=== PATIENT | female | born 1990 | race Caucasian/White ===

== ENCOUNTER 2020-10-28 09:33 | Inpatient (IN) ==
[2020-10-28] MEDS ORDERED: PENICILLIN G POTASSIUM 6 MU in DEXTROSE 5% 250 ML IV STA (10:26)
[2020-10-28] MEDS ORDERED: OXYTOCIN 30 UNITS/500 ML BAG IV PRN ×3 (10:26→17:41)
[2020-10-28] MEDS ORDERED: PENICILLIN G POTASSIUM 3 MU in DEXTROSE 5% 100 ML IV PRN (10:26)
--- NOTE | 2020-10-28 10:31 | History & Physical Report ---
Date of Service October 28, 2020 Assessment & Plan (1) Uterine contractions: (2) Active labor at term: Plan: 30-year-old G1, P0 at 39 weeks of gestation presenting in active labor with regular contractions, Vital signs stable afebrile, heart rate reassuring, GBS positive, Plan to admit, monitor, labs, penicillin for GBS and anticipate . (3) GBS (group B Streptococcus carrier), +RV culture, currently : History of Present Illness Primary Care Provider: Leida Mcclain MD Patient is a 30-year-old G1, P0 at 39 weeks of gestation who has been feeling contractions since 3:30 AM this morning. They got more closer and regular after 8 AM. She saw bloody mucousy discharge x2. No leakage of fluid. Reports good movements. Her has been uncomplicated except GBS positive. She is being admitted for labor. Allergies Allergy/AdvReac Type Severity Reaction Status Date / Time No Known Drug Allergies Allergy none Verified 10/28/20 09:50 Home Medications Medication Instructions Recorded Confirmed Type azelastine 137 mcg (0.1 %) nasal 2 sprays INTRANASAL DAILY #30 ml 11/02/18 10/28/20 Rx spray aerosol cetirizine 10 mg tablet (Zyrtec) 10 mg PO DAILY 10/21/20 10/28/20 History prenat.vits,alireza,[id number] 1 tab PO DAILY 10/21/20 10/28/20 History Patient History Surgical History H/O foot surgery Family History Family/Other COPD (chronic obstructive pulmonary disease) Tuberculosis Cancer Congenital heart failure Social History Smoking Status: Never smoker Hx Alcohol Use: No Hx Substance Use: No Preferred Language: Luxembourgish Communication Ability: Effective Visual Impairment: No Limitations Hearing Ability: Normal Shank Stitcher Required: No Beliefs That Will Affect Care: None marital status: Current Living Situation: Spouse current occupational status: employed current occupation: [employer] Other Information That Helps Us Care for You: No Feels Safe at Home: Yes Safety Concerns: Feels Safe At This Time Childhood Exposure to Second-Hand Smoke: No Dental Care, Regularly: Yes Seatbelt Use: always Sunscreen Use: Yes Do you think of yourself as: straight/heterosexual Sexual Activity: has never been active Gender Identity: Female Assistive Devices: None BLOCKER HEATED METAL FORMS History No history of STDs including chlamydia gonorrhea or herpes Review of Systems All systems reviewed & are unremarkable except as noted in HPI & below Physical Exam Constitutional: WD/WN, vitals as above well developed, well nourished and + acute distress (With contractions only) Genitourinary: normal external appearance OB Exam Abdomen: + vertex Manual OB Exam: + cervical dilation 5 cm, + cervical effacement 80% and + station -1 OB Exam Monitor Tracing: + external uterine monitor used and + category I Results & Data ([facility]) Vital Signs (Past 12 Hours) Vital Signs Temp Pulse Resp BP 10/28/20 09:46 86 123/75 10/28/20 09:44 36.9 C 20
[2020-10-28] MEDS ORDERED: fentaNYL citrate 100 MCG/2 ML VIAL ONE (10:44)
[2020-10-28] MEDS ORDERED: SODIUM CHLORIDE 0.9% INJ 10 ML VIAL ONE (10:44)
[2020-10-28] MEDS ORDERED: BUPIVACAINE 0.25% 30 ML VIAL ONE (10:44)
[2020-10-28] MEDS ORDERED: ePHEDrine sulfate 50 MG/ML AMP ONE (10:44)
[2020-10-28] MEDS ORDERED: fentaNYL 2MCG/ML ROPIVACAINE 1.25MG/ML 100 ML BAG EPI ONE (10:44)
[2020-10-28] MEDS: LACTATED RINGER'S 1,000 ML IV PRN ×2 (10:49→11:49)
[2020-10-28 10:52] LABS: Hematocrit (blood only) 36.4 % (37-47); Hemoglobin 12.2 g/dL (12.0-16.0); Mean Corpuscular Hemoglobin 28.8 pg (25-34); Mean Corpuscular Hgb Conc 33.5 g/dL (32-36); Mean Corpuscular Volume 86.1 fL (80-100); Mean Platelet Volume 12.4 fL (7.4-10.4); Platelet Count 222 K/uL (130-400); RDW Coefficient of Variation 13.8 % (11.5-14.5); RDW Standard Deviation 42.8 fL (36.4-46.3); Red Blood Count 4.23 M/uL (4.2-5.4); White Blood Count 14.79 K/uL (4.8-10.8)
--- NOTE | 2020-10-28 11:15 | Anesthesiology Consultation ---
Date of Service October 28, 2020 Assessment & Plan ASA ASA2 Proposed Anesthesia Anesthesia Type: General and Labor Epidural Risk / Benefits Reviewed With: PT / POA / Parent / Guardian, Accepts Plan and Informed Consent Obtained History Height/Weight Height: 5 ft 5 in Weight: 87.997 kg Allergies Allergy/AdvReac Type Severity Reaction Status Date / Time No Known Drug Allergies Allergy none Verified 10/28/20 09:50 Medications Home Medications Medication Instructions Recorded Confirmed Last Taken azelastine 137 mcg (0.1 %) nasal 2 sprays INTRANASAL DAILY #30 ml 11/02/18 10/28/20 10/28/20 07:30 spray aerosol cetirizine 10 mg tablet (Zyrtec) 10 mg PO DAILY 10/21/20 10/28/20 10/27/20 09:30 prenat.vits,alireza,iqm-snaq-azztb 1 tab PO DAILY 10/21/20 10/28/20 10/27/20 09:30 Active Medications Generic Name Dose Route Start Last Admin Trade Name Freq PRN Reason Stop Dose Admin Lactated Ringer's 1,000 mls @ 150 mls/hr 10/28/20 10:26 10/28/20 11:43 Lr IV 10/30/20 10:25 150 mls/hr .[id number] PRN Infusion L&D Protocol Protocol Ropivacaine 100 ml 10/28/20 11:18 10/28/20 11:40 Fentanyl 2mcg/Ml Ropivacaine 1.25mg/Ml 100 Ml Bag EPI 10/29/20 11:17 12 ml PRN PRN Administration Pain R/T Labor Protocol Exercise / Class Metabolic Activity II 4-5 Yardwork/Stairs/Walk up hill Past Family History Family History Family/Other COPD (chronic obstructive pulmonary disease) Tuberculosis Cancer Congenital heart failure Past Surgical History Surgical History H/O foot surgery Past Anesthesia History No Hx of Anesthesia Complications and No Family Hx of Anesthesia Complications History of PONV No Hx of PONV and No Hx of Motion Sickness Social History Smoking Status: Never smoker Hx Alcohol Use: No Hx Substance Use: No Review of Systems denies fever/cough/ colds/ chest pain/ SOB/ RENE denies RENE Physical Exam Vital Signs Last Vital Signs Temp 37.1 C 10/28/20 11:10 Pulse 82 10/28/20 11:44 Resp 18 10/28/20 11:40 BP 133/71 10/28/20 11:44 Pulse Ox 100 10/28/20 11:39 ENMT Mouth: no TMJ abnormality and no dentition abnormality Thyromental Distance: > or= 3.5 Finger Breadths Mallampati Class: II Neck neck extension not limited Respiratory normal respiratory effort; no respiratory distress Auscultation: lungs clear to auscultation bilaterally Cardiovascular Rate/Rhythm: regular rate and regular rhythm Neurologic moves all extremities Psychiatric Orientation: alert and oriented x 3 Testing Laboratory Results 10/28/20 10:35
[2020-10-28] MEDS ORDERED: diphenhydrAMINE 50 MG/ML VIAL IV PRN (11:18)
[2020-10-28] MEDS ORDERED: NALOXONE HCL 0.4 MG/1 ML VIAL/CARP IV PRN (11:18)
[2020-10-28] MEDS ORDERED: NALOXONE HCL 1 MG in SODIUM CHLORIDE 0.9% 1000ML 1,000 ML IV PRN (11:18)
[2020-10-28] MEDS ORDERED: ePHEDrine sulfate 50 MG/ML AMP IV PRN (11:18)
[2020-10-28] MEDS ORDERED: NALBUPHINE HCL INJ 10 MG/ML AMP IV PRN (11:18)
[2020-10-28] MEDS ORDERED: fentaNYL 2MCG/ML ROPIVACAINE 1.25MG/ML 100 ML BAG EPI PRN (11:18)
--- NOTE | 2020-10-28 16:14 | Obstetrical Progress Note ---
Date of Service October 28, 2020 Assessment & Plan Admission and Anticipated Discharge Date Admission Date: October 28, 2020 Subjective Late entry from 15:40 Patient is comfortable, received epidural for pain VSS Afebrile FHR reassuring 2nd dose of PCN is running VE; 10/ 100%/+3 Will finish PCN and start pushing Continue to monitor closely Results & Data ([facility]) Vital Signs (Past 12 Hours) Vital Signs Temp Pulse Resp BP Pulse Ox 10/28/20 16:09 69 100 10/28/20 16:05 79 92 10/28/20 16:04 72 140/74 100 10/28/20 16:00 20 10/28/20 15:59 72 100 10/28/20 15:54 83 88 L 10/28/20 15:53 83 92 10/28/20 15:50 36.7 C 68 20 134/69 10/28/20 15:49 67 100 10/28/20 15:45 82 90 10/28/20 15:44 81 100 10/28/20 15:39 73 100 10/28/20 15:35 69 130/71 10/28/20 15:34 75 100 10/28/20 15:30 20 10/28/20 15:29 61 100 10/28/20 15:24 58 L 100 10/28/20 15:19 62 119/64 99 10/28/20 15:14 63 100 10/28/20 15:09 69 100 10/28/20 15:06 64 126/65 10/28/20 15:04 67 100 10/28/20 15:00 36.7 C 20 10/28/20 14:59 67 100 10/28/20 14:54 58 L 100 10/28/20 14:51 57 L 112/61 10/28/20 14:49 56 L 100 10/28/20 14:44 56 L 100 10/28/20 14:39 62 100 10/28/20 14:35 60 114/66 10/28/20 14:34 61 100 10/28/20 14:30 20 10/28/20 14:29 61 100 10/28/20 14:24 61 100 10/28/20 14:19 62 114/67 100 10/28/20 14:14 61 100 10/28/20 14:09 71 100 10/28/20 14:04 66 129/75 100 10/28/20 14:00 20 10/28/20 13:59 62 100 10/28/20 13:54 68 100 10/28/20 13:50 70 125/72 10/28/20 13:49 85 100 10/28/20 13:44 65 100 10/28/20 13:39 65 100 10/28/20 13:34 70 117/72 100 10/28/20 13:30 20 10/28/20 13:29 74 100 10/28/20 13:24 68 100 10/28/20 13:20 76 116/72 10/28/20 13:19 68 100 10/28/20 13:14 60 100 10/28/20 13:09 71 100 10/28/20 13:05 66 119/71 10/28/20 13:04 64 100 10/28/20 13:00 20 10/28/20 12:59 74 100 10/28/20 12:54 79 100 10/28/20 12:49 69 114/73 100 10/28/20 12:44 67 100 10/28/20 12:40 36.6 C 20 10/28/20 12:39 88 98 10/28/20 12:35 65 110/72 10/28/20 12:34 63 100 10/28/20 12:30 20 10/28/20 12:29 60 100 10/28/20 12:24 64 100 10/28/20 12:19 68 119/56 L 99 10/28/20 12:14 67 100 10/28/20 12:09 70 100 10/28/20 12:04 69 128/67 100 10/28/20 12:00 20 10/28/20 11:59 79 134/74 100 10/28/20 11:54 80 133/70 100 10/28/20 11:52 75 127/67 10/28/20 11:50 73 18 124/65 10/28/20 11:49 78 100 10/28/20 11:48 75 125/65 10/28/20 11:46 70 122/67 10/28/20 11:45 20 10/28/20 11:44 75 133/71 100 10/28/20 11:42 69 131/63 10/28/20 11:40 71 18 130/63 10/28/20 11:39 67 100 10/28/20 11:37 83 146/60 H 10/28/20 11:34 78 91 10/28/20 11:29 78 100 10/28/20 11:24 71 10/28/20 11:19 64 100 10/28/20 11:14 67 10/28/20 11:10 37.1 C 71 20 142/83 H 10/28/20 11:09 75 100 10/28/20 09:46 86 123/75 10/28/20 09:44 36.9 C 20
[2020-10-28] MEDS ORDERED: MINERAL OIL 30 ML UDC ONE (17:06)
[2020-10-28] MEDS ORDERED: miSOPROStoL 200 MCG TAB ONE (17:32)
[2020-10-28] MEDS ORDERED: DIPHTHERIA/TETANUS/PERTUSSIS 0.5 ML SYR/VIAL IM ONE (17:41)
[2020-10-28] MEDS ORDERED: HYDROCORTISONE ACETATE 25 MG SUPP PR PRN (17:41)
[2020-10-28] MEDS ORDERED: BENZOCAINE 20% AER SPR 82.5 GM CAN EXT PRN (17:41)
[2020-10-28] MEDS ORDERED: ACETAMINOPHEN 325 MG TAB PO PRN (17:41)
[2020-10-28] MEDS ORDERED: SUPERCREAM 0.870% 15 GM JAR EXT PRN (17:41)
[2020-10-28] MEDS ORDERED: miSOPROStoL 200 MCG TAB PR ONE (17:41)
[2020-10-28] MEDS ORDERED: oxyCODONE/ACETAMINOPHEN 5mg/325mg TAB PO PRN (17:41)
[2020-10-28] MEDS ORDERED: bisacodyL 10 MG SUPP PR PRN (17:41)
[2020-10-28] MEDS ORDERED: MEASLES, MUMPS & RUBELLA VIRUS VIAL SQ ONE (17:41)
--- NOTE | 2020-10-28 17:58 | Delivery Summary ---
DATE OF DELIVERY: 10/28/2020 TIME OF DELIVERY: 1714 p.m. DETAILS OF DELIVERY: The patient was found to be fully dilated and desired to push. She pushed for about 50 minutes and delivered the head without difficulty. Shoulders were delivered with minimal traction. Baby was handed to the mother where mouth and nose were suctioned. Baby was vigorously moving and crying. Cord was clamped x2 and cut at 1 minute delay. Cord blood was obtained. Vagina and perineum were checked for lacerations. There was a small vaginal laceration at the 5 o'clock position. It was a second-degree. It was repaired with 0 Vicryl in a running locked fashion and then there was another smaller one in the posterior wall of vagina, which was also repaired with 0 Vicryl and 2-0 Vicryl in a running fashion. Excellent hemostasis was achieved. There was a superficial first-degree laceration medial to the right upper labia. It was also repaired with 3-0 Vicryl with [id number] stitches x1 and it was hemostatic. The placenta was found to be in the vagina, delivered spontaneous as intact and complete. Uterus was explored and found to be empty. Lower segment was cleared of all clots and debris. The fundus was firm. EBL was 250 mL. Mom and baby tolerated the procedure well. Sponge, lap, needle count was correct x 2. Baby was a viable male , Apgars 8/9. No complications happened and I was present during whole procedure. Job ID: [id number] [facility]
--- NOTE | 2020-10-28 18:24 | Anesthesia Procedure Note ---
Date of Service October 28, 2020 Anesthesia Post Epidural Note Vital Signs Vital Signs: Temp Pulse Resp BP Pulse Ox 36.7 C 80 20 124/67 99 10/28/20 15:50 10/28/20 18:17 10/28/20 18:03 10/28/20 18:17 10/28/20 17:44 Pain Intensity Abdomen: Pain Intensity: 0 Notes Mental Status: alert / awake / arousable and participated in evaluation Patient Amnestic to Procedure: Yes Nausea / Vomiting: adequately controlled Pain: adequately controlled Airway Patency, RR, SpO2: stable & adequate BP & HR: stable & adequate Hydration State: stable & adequate Anesthetic Complications: no major complications apparent and Pt Satisfied with anesthetic care
[2020-10-28] MEDS: DOCUSATE SODIUM 100 MG CAP PO SCH (22:34)
[2020-10-29] MEDS: IBUPROFEN 600 MG TAB PO PRN ×4 (01:53→20:55)
[2020-10-29 06:58] LABS: Hematocrit (blood only) 29.4 % (37-47); Hemoglobin 9.8 g/dL (12.0-16.0); Mean Corpuscular Hemoglobin 28.7 pg (25-34); Mean Corpuscular Hgb Conc 33.3 g/dL (32-36); Platelet Count 177 K/uL (130-400); RDW Coefficient of Variation 13.8 % (11.5-14.5); RDW Standard Deviation 42.8 fL (36.4-46.3); Red Blood Count 3.42 M/uL (4.2-5.4); White Blood Count 15.14 K/uL (4.8-10.8)
[2020-10-29] MEDS: PRENATAL VITAMIN 1 TAB PO SCH (08:41)
[2020-10-29] MEDS: DOCUSATE SODIUM 100 MG CAP PO SCH ×2 (08:41→20:55)
[2020-10-29] MEDS: FERROUS SULFATE 325 MG TAB PO SCH (08:41)
--- NOTE | 2020-10-29 10:24 | Obstetrical Progress Note ---
Date of Service October 29, 2020 Subjective Ambulation: ambulating normally Voiding: no voiding problems Passing Gas:: Yes Diet Tolerance:: regular diet Feeding Type:: breast feeding Current Pain Level(1-10): 0 doing well Physical Exam no pain on palpation abdomen soft fundus firm no edema neg Shayan's tent d/c in AM Results & Data ([facility]) Vital Signs (Past 12 Hours) Vital Signs Temp Pulse Resp BP Pulse Ox 10/29/20 07:48 36.9 C 69 18 116/76 98 10/29/20 04:17 36.8 C 63 16 112/71 96 10/28/20 23:11 36.8 C 67 16 116/72 99 Laboratory Results 10/28/20 10/28/20 10/28/20 10:28 10:28 10:35 WBC 14.79 H RBC 4.23 Hgb 12.2 Hct 36.4 L MCV 86.1 MCH 28.8 MCHC 33.5 RDW Std Deviation 42.8 RDW Coeff of Taryn 13.8 Plt Count 222 MPV 12.4 H COVID-19 Eval Order Covid19 [facility]Now [facility] SARS-CoV-2, RNA, NAAT NEGATIVE 10/29/20 06:46 WBC 15.14 H RBC 3.42 L Hgb 9.8 L Hct 29.4 L MCV 86.0 MCH 28.7 MCHC 33.3 RDW Std Deviation 42.8 RDW Coeff of Taryn 13.8 Plt Count 177 MPV 12.0 H COVID-19 Eval Order SARS-CoV-2, RNA, NAAT
[2020-10-29] MEDS ORDERED: bisacodyL 5 MG TABEC PO SCH (20:00)
[2020-10-30] MEDS: IBUPROFEN 600 MG TAB PO PRN (06:22)
[2020-10-30 06:44] LABS: Hematocrit (blood only) 28.3 % (37-47); Hemoglobin 9.3 g/dL (12.0-16.0)
--- NOTE | 2020-10-30 07:38 | Obstetrical Progress Note ---
Date of Service October 30, 2020 Assessment & Plan Admission and Anticipated Discharge Date Admission Date: October 28, 2020 Subjective Patient is seen and examined. She feels well, no complaints. Ambulating without dizziness Voiding without difficulty Tolerating regular diet with out N&V Bleeding is minimal No fever/ chills/ CP/ SOB/ N&V/ Leg pain Breast and bottle feeding without problems Vital Signs Temp Pulse Resp BP Pulse Ox 10/29/20 23:30 37 C 68 16 112/75 99 10/29/20 20:35 36.9 C 77 16 110/71 99 10/29/20 15:11 36.9 C 72 18 119/74 99 10/29/20 12:00 36.8 C 71 18 113/73 97 10/29/20 07:48 36.9 C 69 18 116/76 98 Lab Results 10/28/20 10/28/20 10/28/20 Range/Units 10:28 10:28 10:35 WBC 14.79 H (4.8-10.8) K/uL RBC 4.23 (4.2-5.4) M/uL Hgb 12.2 (12.0-16.0) g/dL Hct 36.4 L (37-47) % MCV 86.1 (80-100) fL MCH 28.8 (25-34) pg MCHC 33.5 (32-36) g/dL RDW Std Deviation 42.8 (36.4-46.3) fL RDW Coeff of Taryn 13.8 (11.5-14.5) % Plt Count 222 (130-400) K/uL MPV 12.4 H (7.4-10.4) fL Immature Gran % (Auto) Neut % (Auto) Lymph % (Auto) Pope % (Auto) Eos % (Auto) Baso % (Auto) Neut # (Auto) Lymph # (Auto) Pope # (Auto) Eos # (Auto) Baso # (Auto) Immature Gran # (Auto) Absolute Nucleated RBC Nucleated RBC % (auto) Neutrophils % (Manual) Band Neutrophils % Lymphocytes % (Manual) Prolymphocyte % Reactive Lymphs % (Man) Monocytes % (Manual) Eosinophils % (Manual) Basophils % (Manual) Metamyelocytes % (Man) Myelocytes % (Man) Promyelocytes % (Man) Blast Cells % (Manual) Plasma Cell % (Manual) Other Cells % Nucleated RBC % Neutrophils # (Manual) Band Neutrophils # Total Absolute Neuts Lymphocytes # (Manual) Prolymphocyte # Reactive Lymphs # Total Abs Lymphocytes Monocytes # (Manual) Eosinophils # (Manual) Basophils # (Manual) Metamyelocytes # (Man) Myelocytes # (Manual) Promyelocytes # (Man) Blast Cells # (Man) Plasma Cell # (Manual) Other Cells # Nucleated RBCs # (Man) Hypersegmented Neuts Hyposegmented Neuts Hypogranular Neuts Large Granular Lymphs # Lrg Granular Lymphs Hairy Cells Smudge Cells Toxic Granulation Toxic Vacuolation Dohle Bodies [place]apphire Rods Platelet Estimate Hypogranular Platelets Clumped Platelets Giant Platelets Platelet Satelliting RBC Morphology Polychromasia Hypochromasia Poikilocytosis Basophilic Stippling Anisocytosis Microcytosis Macrocytosis Spherocytes Pappenheimer Bodies Sickle Cells Target Cells Tear Drop Cells Ovalocytes Stomatocytes [place] Bodies Echinocytes Acanthocytes (Spur) Rouleaux RBC Agglutinates Schistocytes RBC Morph Comment Sezary Cell COVID-19 Eval Order Covid19 IDNow [facility] SARS-CoV-2, RNA, NAAT NEGATIVE (NEGATIVE) 10/29/20 10/30/20 10/30/20 Range/Units 06:46 06:20 06:20 WBC 15.14 H Cancelled (4.8-10.8) K/uL RBC 3.42 L Cancelled (4.2-5.4) M/uL Hgb 9.8 L 9.3 L Cancelled (12.0-16.0) g/dL Hct 29.4 L 28.3 L Cancelled (37-47) % MCV 86.0 Cancelled (80-100) fL MCH 28.7 Cancelled (25-34) pg MCHC 33.3 Cancelled (32-36) g/dL RDW Std Deviation 42.8 Cancelled (36.4-46.3) fL RDW Coeff of Taryn 13.8 Cancelled (11.5-14.5) % Plt Count 177 Cancelled (130-400) K/uL MPV 12.0 H Cancelled (7.4-10.4) fL Immature Gran % (Auto) Cancelled Neut % (Auto) Cancelled Lymph % (Auto) Cancelled Pope % (Auto) Cancelled Eos % (Auto) Cancelled Baso % (Auto) Cancelled Neut # (Auto) Cancelled Lymph # (Auto) Cancelled Pope # (Auto) Cancelled Eos # (Auto) Cancelled Baso # (Auto) Cancelled Immature Gran # (Auto) Cancelled Absolute Nucleated RBC Cancelled Nucleated RBC % (auto) Cancelled Neutrophils % (Manual) Cancelled Band Neutrophils % Cancelled Lymphocytes % (Manual) Cancelled Prolymphocyte % Cancelled Reactive Lymphs % (Man) Cancelled Monocytes % (Manual) Cancelled Eosinophils % (Manual) Cancelled Basophils % (Manual) Cancelled Metamyelocytes % (Man) Cancelled Myelocytes % (Man) Cancelled Promyelocytes % (Man) Cancelled Blast Cells % (Manual) Cancelled Plasma Cell % (Manual) Cancelled Other Cells % Cancelled Nucleated RBC % Cancelled Neutrophils # (Manual) Cancelled Band Neutrophils # Cancelled Total Absolute Neuts Cancelled Lymphocytes # (Manual) Cancelled Prolymphocyte # Cancelled Reactive Lymphs # Cancelled Total Abs Lymphocytes Cancelled Monocytes # (Manual) Cancelled Eosinophils # (Manual) Cancelled Basophils # (Manual) Cancelled Metamyelocytes # (Man) Cancelled Myelocytes # (Manual) Cancelled Promyelocytes # (Man) Cancelled Blast Cells # (Man) Cancelled Plasma Cell # (Manual) Cancelled Other Cells # Cancelled Nucleated RBCs # (Man) Cancelled Hypersegmented Neuts Cancelled Hyposegmented Neuts Cancelled Hypogranular Neuts Cancelled Large Granular Lymphs Cancelled # Lrg Granular Lymphs Cancelled Hairy Cells Cancelled Smudge Cells Cancelled Toxic Granulation Cancelled Toxic Vacuolation Cancelled Dohle Bodies Cancelled [place] Rods Cancelled Platelet Estimate Cancelled Hypogranular Platelets Cancelled Clumped Platelets Cancelled Giant Platelets Cancelled Platelet Satelliting Cancelled RBC Morphology Cancelled Polychromasia Cancelled Hypochromasia Cancelled Poikilocytosis Cancelled Basophilic Stippling Cancelled Anisocytosis Cancelled Microcytosis Cancelled Macrocytosis Cancelled Spherocytes Cancelled Pappenheimer Bodies Cancelled Sickle Cells Cancelled Target Cells Cancelled Tear Drop Cells Cancelled Ovalocytes Cancelled Stomatocytes Cancelled [place] Bodies Cancelled Echinocytes Cancelled Acanthocytes (Spur) Cancelled Rouleaux Cancelled RBC Agglutinates Cancelled Schistocytes Cancelled RBC Morph Comment Cancelled Sezary Cell Cancelled COVID-19 Eval Order SARS-CoV-2, RNA, NAAT (NEGATIVE) PE: General: Alert, orientedx3, NAD Abd: soft, NT, fundus firm, below Umbilicus Perineum intact, Lochia rubra minimal Ext; NT, no edema AP: 30 yo s/p , ppd# 2 VSS Afebrile doing well Continue routine care All questions were answered Discussed when to call D/C home , f/u in office Results & Data ([facility]) Vital Signs (Past 12 Hours) Vital Signs Temp Pulse Resp BP Pulse Ox 10/29/20 23:30 37 C 68 16 112/75 99 10/29/20 20:35 36.9 C 77 16 110/71 99
[2020-10-30 07:39] LABS: Basophils # (auto) 0.03 K/uL (0-0.2); Basophils % (auto) 0.3 %; Eosinophils % (auto) 1.7 %; Immature Granulocytes # (auto) 0.14 K/uL (0.00-0.02); Immature Granulocytes % (auto) 1.2 %; Lymphocytes # (auto) 1.52 K/uL (1.2-3.4); Lymphocytes % (auto) 13.2 %; Mean Corpuscular Hemoglobin 28.7 pg (25-34); Mean Platelet Volume 12.3 fL (7.4-10.4); Monocytes # (auto) 0.62 K/uL (0.11-0.59); Monocytes % (auto) 5.4 %; Neutrophils # (auto) 8.97 K/uL (1.4-6.5); Neutrophils % (auto) 78.2 %; Platelet Count 194 K/uL (130-400); RDW Coefficient of Variation 13.9 % (11.5-14.5); RDW Standard Deviation 44.3 fL (36.4-46.3); Red Blood Count 3.28 M/uL (4.2-5.4); White Blood Count 11.48 K/uL (4.8-10.8)
[2020-10-30 07:40] LABS: Mean Corpuscular Hgb Conc 32.9 g/dL (32-36); Mean Corpuscular Volume 86.5 fL (80-100)
[2020-10-30] MEDS: FERROUS SULFATE 325 MG TAB PO SCH (07:42)
[2020-10-30] MEDS: DOCUSATE SODIUM 100 MG CAP PO SCH (07:42)
[2020-10-30] MEDS: PRENATAL VITAMIN 1 TAB PO SCH (07:42)
== END 2020-10-30 12:00 | disposition home or self-care (01) | DRG 807 ==
LOC: OPB 09:33 → 4S1 09:34 → 4S2 20:04

== ENCOUNTER 2024-04-17 17:55 | Inpatient (IN) ==
[2024-04-17] MEDS ORDERED: CALCIUM CARBONATE 500 MG CHEWABLE TAB PO PRN (19:08)
[2024-04-17] MEDS ORDERED: ACETAMINOPHEN 325 MG TAB PO PRN ×2 (19:08→21:21)
[2024-04-17] MEDS ORDERED: LIDOCAINE 1% LOCAL 20 ML VIAL INFIL PRN (19:08)
[2024-04-17] MEDS: SODIUM CHLORIDE 0.9% 1,000 ML IV SCH (19:10)
[2024-04-17 19:45] LABS: Basophils # (auto) 0.06 K/uL (0.00-0.20); Basophils % (auto) 0.5 %; Eosinophils # (auto) 0.19 K/uL (0.00-0.50); Eosinophils % (auto) 1.5 %; Hematocrit (blood only) 33.9 % (37.0-47.0); Hemoglobin 11.3 g/dl (12.0-16.0); Immature Granulocytes # (auto) 0.32 K/uL (0.01-0.20); Immature Granulocytes % (auto) 2.6 %; Lymphocytes % (auto) 12.2 %; Mean Corpuscular Hemoglobin 27.8 pg (25.0-34.0); Mean Corpuscular Hgb Conc 33.3 g/dL (32.0-36.0); Mean Corpuscular Volume 83.5 fL (80.0-100.0); Mean Platelet Volume 11.9 fL (9.4-12.4); Monocytes # (auto) 0.79 K/uL (0.11-0.59); Monocytes % (auto) 6.4 %; Neutrophils % (auto) 76.8 %; Platelet Count 231 K/uL (130-400); RDW Coefficient of Variation 14.5 % (11.5-14.5); RDW Standard Deviation 43.7 fL (36.4-46.3); Red Blood Count 4.06 M/uL (4.20-5.40); White Blood Count 12.26 K/ul (4.8-10.8)
[2024-04-17] MEDS ORDERED: SODIUM CHLORIDE 0.9% PF INJ 10 ML VIAL EPI PRN (19:47)
[2024-04-17] MEDS ORDERED: NALOXONE HCL 1 MG in SODIUM CHLORIDE 0.9% 1,000 ML IV PRN (19:47)
[2024-04-17] MEDS ORDERED: ePHEDrine sulfate 50 MG/ML AMP IV PRN (19:47)
[2024-04-17] MEDS ORDERED: BUPIVACAINE 0.25% PF 30 ML VIAL EPI PRN (19:47)
[2024-04-17] MEDS ORDERED: ROPIVACAINE 0.5% PF 5 MG/ML 20 ML VIAL EPI PRN (19:47)
[2024-04-17] MEDS ORDERED: diphenhydrAMINE 50 MG/ML VIAL IV PRN (19:47)
[2024-04-17] MEDS ORDERED: fentaNYL citrate PF 100 MCG/2 ML VIAL EPI PRN (19:47)
[2024-04-17] MEDS ORDERED: fentANYL 2 MCG/ML BUPIVacaine 0.125%-NSS 100ML BAG EPI PRN (19:47)
[2024-04-17] MEDS ORDERED: LIDOCAINE 2% MPF LOCAL 5 ML VIAL EPI PRN (19:47)
[2024-04-17] MEDS ORDERED: NALOXONE HCL 0.4 MG/1 ML VIAL/CARP IV PRN (19:47)
[2024-04-17] MEDS ORDERED: NALBUPHINE HCL INJ 10 MG/ML AMP IV PRN (19:47)
--- NOTE | 2024-04-17 19:52 | Anesthesiology Consultation ---
Date of Service April 17, 2024 Assessment & Plan Chart Review Chart Review: Patient NOT seen in Pre Admission Testing and Acceptable Risk for Labor Epidural Consults Requested none ASA ASA2 Proposed Anesthesia Anesthesia Type: Labor Epidural Risk / Benefits Reviewed With: PT / POA / Parent / Guardian, Accepts Plan and Informed Consent Obtained History Height/Weight Height: 5 ft 5 in Weight: 102.058 kg Allergies Allergy/AdvReac Type Severity Reaction Status Date / Time No Known Drug Allergies Allergy none Verified 10/28/20 09:50 Medications Home Medications Medication Instructions Recorded Confirmed Last Taken cetirizine 10 mg tablet (Zyrtec) 10 mg PO DAILY 10/21/20 04/17/24 04/17/24 azelastine 137 mcg (0.1 %) nasal 2 sprays intranasal DAILY PRN 04/17/24 04/17/24 Unknown spray Allergy Symptoms ferrous sulfate 325 mg (65 mg 325 mg PO DAILY 04/17/24 04/17/24 04/17/24 iron) tablet,delayed release levothyroxine 100 mcg tablet 100 mcg PO DAILY 04/17/24 04/17/24 04/17/24 (Synthroid) levothyroxine 50 mcg tablet 50 mcg PO DAILY 04/17/24 04/17/24 04/16/24 (Synthroid) vits no.124-ferrous fum 1 tab PO DAILY 04/17/24 04/17/24 04/17/24 27 mg iron-folic acid 800 mcg tablet ( Vitamin) Active Medications Generic Name Dose Route Start Last Admin Trade Name Freq PRN Reason Stop Dose Admin Sodium Chloride 1,000 mls @ 80 mls/hr 04/17/24 19:30 04/17/24 19:10 Nss IV 04/18/24 19:29 999 mls/hr .[id number] BETSY Administration NPO Date Last Intake of Fluids: 04/17/24 Time Last Intake of Fluids: 19:30 Date Last Intake of Solids: 04/17/24 Time Last Intake of Solids: 17:30 Past Medical History Medical History GBS (group B Streptococcus carrier), +RV culture, currently Active labor at term Uterine contractions Exercise / Class Metabolic Activity 1 > 8 Run/Swim/Ski/Tennis Past Family History Family History Family/Other COPD (chronic obstructive pulmonary disease) Tuberculosis Cancer Congenital heart failure Past Surgical History Surgical History H/O foot surgery Past Anesthesia History No Hx of Anesthesia Complications and No Family Hx of Anesthesia Complications History of PONV No Hx of PONV and No Hx of Motion Sickness Social History Smoking Status: Never smoker Hx Alcohol Use: No Hx Substance Use: No Review of Systems ROS Unobtainable: All systems reviewed & are unremarkable except as noted in HPI & below Physical Exam Vital Signs Last Vital Signs Temp 37.2 C 04/17/24 18:06 Pulse 83 04/17/24 19:47 Resp 18 04/17/24 18:06 BP 121/70 04/17/24 18:11 Pulse Ox 98 04/17/24 19:47 ENMT Mouth: no TMJ abnormality Thyromental Distance: > or= 3.5 Finger Breadths Mallampati Class: II Neck normal visual inspection and trachea midline; neck extension not limited Respiratory normal respiratory effort Auscultation: lungs clear to auscultation bilaterally Cardiovascular Rate/Rhythm: regular rate and regular rhythm Heart Sounds: no murmur Musculoskeletal Spine: normal cervical ROM Extremities: full ROM of extremities Neurologic moves all extremities Psychiatric Orientation: alert and oriented x 3 Testing Laboratory Results 04/17/24 19:30
[2024-04-17] MEDS: BUPIVACAINE 0.25% PF 30 ML VIAL ONE (20:07)
[2024-04-17] MEDS: LIDOCAINE 2%/EPINEPHRINE 1:200,000 20 ML PF ONE (20:07)
[2024-04-17] MEDS: fentANYL 2 MCG/ML BUPIVacaine 0.125%-NSS 100ML BAG ONE (20:09)
[2024-04-17] MEDS: OXYTOCIN 30 UNITS/NSS 30 UNITS/500 ML BAG IV PRN (21:00)
[2024-04-17] MEDS: METHYLERGONOVINE MALEATE 0.2 MG/ML AMP IM ONE (21:18)
[2024-04-17] MEDS: miSOPROStoL 200 MCG TAB PR ONE (21:18)
[2024-04-17] MEDS ORDERED: HYDROCORTISONE ACETATE 25 MG SUPP PR PRN (21:21)
[2024-04-17] MEDS ORDERED: ACETAMINOPHEN W/CODEINE #3 1 TAB PO PRN (21:21)
[2024-04-17] MEDS ORDERED: BENZOCAINE 20% SPRY 85 APPLN/85 GM CAN EXT PRN (21:21)
[2024-04-17] MEDS ORDERED: bisacodyL 10 MG SUPP PR PRN (21:21)
[2024-04-17] MEDS ORDERED: OXYTOCIN 30 UNITS/NSS 30 UNITS/500 ML BAG IV PRN (21:21)
[2024-04-17] MEDS ORDERED: oxyCODONE/ACETAMINOPHEN 5mg/325mg TAB PO PRN (21:21)
--- NOTE | 2024-04-17 21:26 | Delivery Summary ---
Vaginal Delivery Summary Date of Service April 17, 2024 Vaginal Delivery Summary Patient is a 2 para 2. Admitted at 39 weeks gestation. With vaginal bleeding and contractions. Her first check on the labor floor revealed her cervix to be 6 cm dilated and 90% effaced. Patient requested epidural. Patient obtained good pain relief from the epidural. After the epidural was then I rechecked her and she was 9 cm. Membranes were ruptured surgically. Fluid was clear. In less than a half an hour she became fully dilated and started to push. She had 1 or 2 limited episodes of bradycardia. This was managed conservatively with oxygen and not pushing during the bradycardia. Heart rate came up nicely. With variability. Started to push. With about 4 or 5 pushes she pushed out a live female infant via direct occiput anterior position over an intact perineum. was suctioned through the mouth and the nose. began to cry before the body was delivered. Arms were delivered without difficulty the hip and the rest of the was delivered without difficulty. Cord was allowed to pulse for 1 full minute. Cord was then clamped cut. Cord blood was taken. With IV Pitocin running the placenta was removed intact. There was a little bit of atony and heavy bleeding after removal of the placenta. This was controlled with IV Pitocin. IM Methergine. And rectal Cytotec. Inspection of the perineum revealed a superficial laceration at 5:00 in the vaginal opening. This was approximated with a running suture of 3-0 chromic out and to beyond the hymenal ring. Then tied. Superficial laceration of the right labia was also repaired with a running 3-0 chromic. Hemostasis was now good. A Allison catheter was used to empty the bladder. 150 cc of urine was obtained. Calculated blood loss was 376 mL. Patient tolerated delivery well.
[2024-04-17] MEDS: fentaNYL citrate PF 100 MCG/2 ML VIAL ONE (21:31)
[2024-04-17] MEDS: ePHEDrine sulfate 50 MG/ML AMP ONE (21:31)
[2024-04-17] MEDS: fentaNYL citrate PF 100 MCG/2 ML VIAL EPI STA (21:32)
[2024-04-17] MEDS: SODIUM CHLORIDE 0.9% PF INJ 10 ML VIAL ONE (21:32)
[2024-04-17] MEDS: BUPIVACAINE 0.25% PF 30 ML VIAL EPI STA (21:32)
[2024-04-17] MEDS: LIDOCAINE 2%/EPINEPHRINE 1:200,000 20 ML PF EPI STA (21:33)
[2024-04-17] MEDS: DIPHTHER/TETAN/PERTUS Vaccine (Tdap, Adol/Adult) 0.5mL IM ONE (21:33)
[2024-04-17] MEDS: SODIUM CHLORIDE 0.9% PF INJ 10 ML VIAL EPI STA (21:33)
[2024-04-17] MEDS: IBUPROFEN 600 MG TAB PO PRN (23:01)
[2024-04-18 00:49] VITALS: O2SAT 98
--- OUTSIDE RECORDS SUMMARY | 2024-04-18 02:41 | External Medical Summary | Summary of Care ---
Author Name Unknown Organization [facility] Address [address] [facility] [place] [address] Phone [phone] Care Team Providers Care Night Clerk Auditor Name Role Phone Leida Mcclain MD Primary Care Provider [phone] Reason for Visit * Reason Comments Return Visit Encounter Details Date Type Department Care Team (Late st Contact Info) Description 04/02/2024 11:30 AM EST Office Visit Gynecology/Obstetric s [facility] [address] [place] [address] Cindy Gonsales PA-C [address] [place] [address] Encounter for supervision of other normal in third trimester*; Hypothyroid in , antepartum; Anxiety during ; Obesity in , antepartum; Antepartum anemia complicating ; History of respiratory syncytial virus (RSV) vaccination Allergies Active Allergy Reactions Criticality Noted Date Comments Latex 08/22/2018 documented as of this encounter (statuses as of 04/02/2024) Medications ZyrTEC Allergy 10 MG Oral Capsule (Cetirizine HCl) Take 1 Capsule by mouth in the morning. Active 1 30-0.975-200 MG Oral Capsule Take 1 Capsule by mouth in the morning. Active Probiotic Acidophilus BioBeads Oral Capsule Take 1 Cap by mouth three times a day with meals. Active Synthroid 50 MCG Oral Tablet 2 Active Sertraline HCl 50 MG Oral Tablet (Zoloft) 2 Active Breast PumpIndications: Breast feeding status of mother Z39.1, CATERINA 04/24/24, double electric pump 1 Each 4 Active Iron-Vitamin C 65-125 MG Oral Tablet (Vitron C) Take 1 Tablet by mouth in the morning. 60 Tablet 2 4 Active Cyanocobalamin 2500 MCG Sublingual Tablet Sublingual Place 1 Tablet under the tongue. Active documented as of this encounter (statuses as of 04/02/2024) Active Problems Problem Noted Date Diagnosed Date History of respiratory syncytial virus (RSV) vac cination 03/07/2024 Overview (03/07/2024): 03/07/24 Antepartum anemia complicating 024 Overview (02/07/2024): Hgb 11.6 at 28-29 weeks, started on PO iron 1 tablet daily Recheck in 4 weeks Anxiety during 10/31/2023 Obesity in , antepartum 10/31/2023 Overview (10/31/2023): Class 1 The patient's pre-gravid BMI is 32.28. Normal early GTT Hypothyroid in , antepartum 09/07/2023 Overview (10/31/2023): On Synthroid 50 mg TSH Results: Lab Results Component Value Date/Time [facility]SH - [facility] 3.53 09/07/2023 04:57 PM 10/12/23: 1.007 Acquired hypothyroidism 05/25/2021 Supervision of normal 03/26/2020 Other forms of migraine, wit abranut mention of intractable migraine without mention of status migrainosus 02/01/2006 Estimated Date of Delivery Comme nts Yes 04/24/2024 Based on Ultraso und documented as of this encounter (statuses as of 04/02/2024) Resolved Problems Problem Noted Date Diagnosed Date Resolved Date Carrier of group B Streptococcus 10/09/2020 11/23/2021 documented as of this encounter (statuses as of 04/02/2024) Immunizations Name Administration Dates Next Due RSV Vac., Bivalent, Perfusion F, Pf,0.5 Ml (Abry svo) 03/07/2024 Seasonal Influenza, PF, 6 M & above, IM , (FluLaval or Fluzone) 12/15/2022 Seasonal Influenza, Trivalent, (IIV3), PF, (Fluz one) 12/13/2023 TDAP (age 10 and older)(Boostrix) 08/21/2020 TDAP, Age 7 and older, IM (Adacel) 02/05/2024 documented as of this encounter Social History Tobacco Use Types Packs/Day Years Used Date Smoking Tobacco: Never Smokeless Tobacco: Never Alcohol Use Standard Drinks/Week Comments Not Currently 0 (1 standard drink = 0.6 oz pur e alcohol) AUDIT-C Answer Date Recorded Frequency of Alcohol Consumption Never 08/22/2018 Average Number of Drinks Not on file 019 Frequency of Binge Drinking Not on file 08/02 PHQ-2 Answer Date Recorded PHQ Adult Total Score 0 04/23/2020 Hunger Vital Sign Answer Date Recorded Within the past 12 months, y ou worried that your food would run out before you got the money to buy more. Never true 12/12/19 24 Within the past 12 months, t he food you bought just didn't last and you didn't have money to get more. Never true 12/12/2023 [place] Depression Scale Answer Date Recorded [place] Depression Scale Total 7 03/07/2024 The thought of harming myself has occurred to me . Never 03/07/2024 Childcare Answer Date Recorded Do you feel overwhelmed with taking care of a child, family member or friend? No 12/12/2023 Does your family need help f inding childcare? (Household - for ages 0-17 years) Not on file 12/12/2023 Clothing Answer Date Recorded Have you been unable to get clothing when it was really needed? No 12/12/2023 Is your family able to get c lothes or diapers when needed? (Household - for ages 0-17 years) Not on file 12/12/2023 Personal Safety Answer Date Recorded Do you feel unsafe or have concerns for your saf ety? No 12/12/2023 Do you have concerns for you r family's safety? (Household - for ages 0-17 years) Not on file 12/12/2023 Utilities Answer Date Recorded Do you have trouble paying y our heating, water, or electric bill? No 12/12/2023 Is your family able to pay t he heat, water, or electric bill? (Household - for ages 0-17 years) Not on file 12/12/2023 Does your family have access to good internet? (Household - for ages 0-17 years) Not on file 12/12/2023 Employment Status Answer Date Recorded Are you unemployed or without regular income? No 12/12/2023 Does the household have a re lar source of income? (Household - for ages 0-17 years) Not on file 12/12/2023 Social Connections Answer Date Recorded How often do you feel lonely or isolated from th ose around you? Rarely 12/12/2023 Financial Resource Strain Answer Date R ecorded Do you have any trouble payi ng for your medications, or do you think you might in the future? No 12/12/2023 Does your family have troubl e paying for medicine? (Household - for ages 0-17 years) Not on file 12/12/2023 Transportation Needs Answer Date Record ed Do you have trouble getting a ride to medical visits or work? (Adult - for ages 18 years and over) Not on file 12/12/2023 Does your family have a hard time getting a ride to doctors visits? (Household - for ages 0-17 years) Not on file 12/12/2023 Has lack of transportation k ept you from medical appointments, meetings, work, or from getting things needed for daily living? Check all that apply. No 12/12/2023 Do you (or your family) have trouble finding or paying for a ride (transportation)? (Household - for ages 0-17 years) Not on file 12/12/2023 Housing Stability Answer Date Recorded Do you currently live in a s helter or have no steady place to sleep at night? No 12/12/2023 Do you think you are at risk of becoming homeless? (Adult - for ages 18 years and over) Not on file 12/12/2023 Does your family worry about paying for your home or becoming homeless? (Household - for ages 0-17 years) Not on file 0 12/12/2023 Are you homeless or worried that you might be in the future? No 12/12/2023 Are you (or your family) josé miguel eless or worried that you might be in the future? (Household - for ages 0-17 years) Not on file Food Insecurity Answer Date Recorded Do you need food for this week? No 12/12/2023 Are you able to get enough f ood for your family? (Household - for ages 0-17 years) Not on file 12/12/2023 Does your family need food t his week? (Household - for ages 0-17 years) Not on file 12/12/2023 Do you always have enough fo od for your family? (Household - for ages 0-17 years) Not on file 12/12/2023 Estimated Date of Delivery Comme nts Yes 04/24/2024 Based on Ultraso und Sex and Gender Information Value Date Recorded Sex Assigned at Female 11/10/2021 1:10 PM EDT Legal Sex Female 10:59 AM EDT Gender Identity Female 11/10/2021 1:10 PM EDT Sexual Orientation Straight 11/10/2021 1: 10 PM EDT documented as of this encounter Last Filed Vital Signs Vital Sign Reading Time Taken Comments Blood Pressure 114/62 04/02/2024 11:21 AM EST Pulse - - Temperature - - Respiratory Rate - - Oxygen Saturation - - Inhaled Oxygen Concentration - - Weight 101.6 kg (224 lb) 04/02/2024 11:21 AM EST Height 165.1 cm (5' 5") 04/02/2024 11:21 AM EST Body Mass Index 37.28 04/02/2024 11:21 AM EST documented in this encounter Progress Notes * Cindy Gonsales PA-C - 04/02/2024 11:42 AM EST 36w6d Overall doing well. Denies regular contractions. Denies LOF, VB. Had more leg pain with contractions last time. Had similar pain this morning on left, resolved. Would like cervical check. Magazine Repairer Documentation Provider requested lead rider. Name of lead rider: IRMA Forte collected RTC in 1 week Cindy Gonsales PA-C documented in this encounter Nursing Notes * Concha Burns LPN - 04/02/2024 11:22 AM EST 36w6d Gbs today documented in this encounter Plan of Treatment Upcoming Encounters Date Type Department Care Team (Late st Contact Info) Description 04/10/2024 2:00 PM EST Office Visit Gynecology/Obstetrics [facility] [address] [place] [address] Corinna Lucio CRNP [address] [place] [address] Scheduled Orders Name Type Priority Associated Diagnoses Orde r Schedule GROUP B STREP CULTURE/PCR Lab Routine Encounter for supervision of other normal in third trimester Ordered: 04/02/2024 Health Maintenance Due Date Last Done Comments Hepatitis B Vaccine (1 of 3 - 19+ 3-dose series) 2009 HPV/Co-Test 01/06/2020 Depression Screening 04/23/2021 04/23/2020 COVID-19 Vaccine (2023- season) 2023 09/29/2020, 09/08/2020 TSH 09/06/2024 09/07/2023 Cervical Cancer Screening 11/23/2024 Pap Smear 11/23/2024 11/23/2021, 05/04, 03/20/2018 DTap/Tdap Vaccines (3 - Td or Tdap) 02/04/2034 02/05/2024, 08/21/2020 MENINGOCOCCAL (MENACTRA/MENVEO) Completed 11/02/2006 HPV (Gardasil) Vaccine Completed 8, 2007, 11/02/2006 Influenza Vaccine (FLU shot) Completed 02/2024, 12/15/2022, 12/21/2021, Additional history exists Pneumococcal Vaccine: Pediatrics (0 to 5 Years) and At-Risk Patients (6 to 18 Years and 19+ Years) Aged Out No longer eligib le based on patient's age to complete this topic documented as of this encounter Medical Devices Not on filedocumented as of this encounter Visit Diagnoses Diagnosis Encounter for supervision of other normal in third trimester- Primary Hypothyroid in , antepartum Thyroid dysfunction, antepartum Anxiety during Obesity in , antepartum Obesity complicating , childbirth, or the puerperium, antepartum condition or complication Antepartum anemia complicating Anemia, antepartum History of respiratory syncytial virus (RSV) vaccination documented in this encounter Care Teams Night Clerk Auditor Relationship Specialty Start Date End Date [place] [id number] PCP - General Family Medicine 04/23/20 documented as of this encounter
--- OUTSIDE RECORDS SUMMARY | 2024-04-18 02:41 | External Medical Summary | Summary of Care ---
Author Name Unknown Organization [facility] Address [address] [facility] [place] [address] Phone [phone] Care Team Providers Care Bacteriologist Industrial Name Role Phone Leida Mcclain MD Primary Care Provider [phone] Reason for Visit * Reason Comments Return Visit Encounter Details Date Type Department Care Team (Late st Contact Info) Description 04/02/2024 11:30 AM EST Office Visit Gynecology/Obstetric s [facility] [address] [place] [address] Cindy Gonsales PA-C [address] [place] [address] Encounter for supervision of other normal in [...] money to get more. Never true 12/12/2023 [place] Depression Scale Answer Date Recorded [place] Depression Scale Total 7 03/07/2024 The thought [...] on left, resolved. Would like cervical check. Shuttler Documentation Provider requested service assistant. Name of service assistant: IRMA Forte collected RTC in 1 week Cindy Gonsales PA-C documented in this encounter Nursing Notes * Concha Burns LPN - 04/02/2024 11:22 AM EST 36w6d Gbs today documented in this encounter Plan of Treatment Upcoming Encounters Date Type Department Care Team (Late st Contact Info) Description 04/10/2024 2:00 PM EST Office Visit Gynecology/Obstetrics [facility] [address] [place] [address] Corinna Lucio CRNP [address] [place] [address] Pending Results Name Type Priority Associated Diagnoses Date /Time GROUP B STREP CULTURE/PCR Lab Routine Encounter for supervision of other normal in third trimester 04/02/2024 12:25 PM EST Health Maintenance Due Date Last Done Comments [...] vaccination documented in this encounter Care Teams Bacteriologist Industrial Relationship Specialty Start Date End Date [place] [address] PCP - General Family Medicine 04/23/20 documented as of this encounter
--- OUTSIDE RECORDS SUMMARY | 2024-04-18 02:41 | External Medical Summary | Summary of Care ---
Author Name Unknown Organization [facility] Address [address] [facility] [place] [address] Phone [phone] Care Team Providers Care Cloud Subject Matter Expert Name Role Phone Leida Mcclain MD Primary Care Provider [phone] Encounter Details Date Type Department Care Team ([facility] Contact Info) Description 03/14/2024 Telephone Gynecology/Obstetrics [facility] [address] [place] [address] Bari Peoples MD [address] [facility] [place] [address] Allergies Active Allergy Reactions Criticality Noted Date Comments Latex 08/22/2018 documented as of this encounter (statuses as of 03/14/2024) Medications ZyrTEC Allergy 10 MG Oral Capsule [...] mouth in the morning. 60 Tablet 2 11/06/202 4 Active Cyanocobalamin 2500 MCG Sublingual Tablet Sublingual Place 1 Tablet under the tongue. Active documented as of this encounter (statuses as of 03/14/2024) Active Problems Problem Noted Date Diagnosed Date [...] Lab Results Component Value Date/Time TSH - [facility] 3.53 09/07/2023 04:57 PM 10/12/23: 1.007 Acquired hypothyroidism 05/25/2021 Supervision of normal 03/26/2020 Other forms of migraine, wit abranut mention of intractable migraine without mention of status migrainosus 02/01/2006 Estimated Date of Delivery Comme nts Yes 04/24/2024 Based on Ultraso und documented as of this encounter (statuses as of 03/14/2024) Resolved Problems Problem Noted Date Diagnosed Date Resolved Date Carrier of group B Streptococcus 10/09/2020 11/23/2021 documented as of this encounter (statuses as of 03/14/2024) Immunizations Name Administration Dates Next Due RSV [...] money to get more. Never true 12/12/2023 [place] Depression Scale Answer Date Recorded [place] Depression Scale Total 7 03/07/2024 The thought [...] 12/12/2023 Does the household have a re gular source of income? (Household - for ages [...] PM EDT documented as of this encounter Miscellaneous Notes * Telephone Encounter - Stephanie Leung LPN - 03/14/2024 1:07 PM EST Pt called in with having left sided rib pain. Pt was just dx'd with bronchitis and from coughing ptfeels she may have pulled something. Pt denies any vb, lof, ctxs baby is moving well. Per Corinna pt can take tylenol to see if that helps and pt should also reach out to PCP to be evaluated. Pt verbalized understanding documented in this encounter Plan of Treatment Upcoming Encounters Date Type Department Care Team (Late st Contact Info) Description 03/21/2024 9:15 AM EST [facility] [address] [place] [address] Bari Peoples MD [address] [place] [address] Health Maintenance Due Date Last Done Comments Hepatitis B Vaccine (1 of 3 - 19+ 3-dose series) 2009 HPV/Co-Test 01/06/2020 Depression Screening 04/23/2021 04/23/2020 COVID-19 Vaccine ( season) 2023 09/29/2020, 09/08/2020 TSH 09/06/2024 09/07/2023 Cervical Cancer Screening 11/23/2024 Pap Smear 11/23/2024 11/23/2021, 05/04, 03/20/2018 DTap/Tdap Vaccines (3 - Td or Tdap) 02/04/2034 02/05/2024, 08/21/2020 MENINGOCOCCAL (MENACTRA/MENVEO) Completed 11/02/2006 HPV (Gardasil) Vaccine Completed 8, 2007, 11/02/2006 Influenza Vaccine (FLU shot) Completed 02/2024, 12/15/2022, 12/21/2021, Additional history exists Pneumococcal Vaccine: Pediatrics (0 to 5 Years) and At-Risk Patients (6 to 64 Years) Aged Out No longer eligible based on patient's age to complete this topic documented as of this encounter Medical Devices Not on filedocumented as of this encounter Care Teams Cloud Subject Matter Expert Relationship Specialty Start Date End Date [place] [address] [id number] PCP - General Family Medicine 04/23/20 documented as of this encounter
--- OUTSIDE RECORDS SUMMARY | 2024-04-18 02:41 | External Medical Summary | Summary of Care ---
Author Name Unknown Organization [facility] Address [address] [place] [address] Phone [phone] Care Team Providers Care Newspaper Writer Name Role Phone Leida Mcclain MD Primary Care Provider [phone] Reason for Visit * Reason Comments Return Visit Encounter Details Date Type Department Care Team ([facility] st Contact Info) Description 03/21/2024 9:15 AM EST Office Visit Gynecology/Obstetric [facility] [address] [place] [address] Bari Peoples MD [address] [place] [id number] Encounter for supervision of other normal in third trimester*; Hypothyroid in , antepartum; Anxiety during ; Obesity in , antepartum; Antepartum anemia complicating ; History of respiratory syncytial virus (RSV) vaccination Allergies Active Allergy Reactions Criticality Noted Date Comments Latex 08/22/2018 documented as of this encounter (statuses as of 03/21/2024) Medications ZyrTEC Allergy 10 MG Oral Capsule [...] as of this encounter (statuses as of 03/21/2024) Active Problems Problem Noted Date Diagnosed Date [...] normal 03/26/2020 Other forms of migraine, wit hout mention of intractable migraine without mention of status migrainosus 02/01/2006 Estimated Date of Delivery Comme nts Yes 04/24/2024 Based on Ultraso und documented as of this encounter (statuses as of 03/21/2024) Resolved Problems Problem Noted Date Diagnosed Date Resolved Date Carrier of group B Streptococcus 10/09/2020 11/23/2021 documented as of this encounter (statuses as of 03/21/2024) Immunizations Name Administration Dates Next Due RSV [...] money to get more. Never true 12/12/2023 [place] Depression Scale Answer Date Recorded [place] Depression Scale Total 7 03/07/2024 The thought [...] No 12/12/2023 Are you (or your family) jos émiguel eless or worried that you might be [...] Sign Reading Time Taken Comments Blood Pressure 106/62 03/21/2024 9:01 AM EST Pulse - - Temperature - - Respiratory Rate - - Oxygen Saturation - - Inhaled Oxygen Concentration - - Weight 100.2 kg (221 lb) 03/21/2024 9:01 AM EST Height - - Body Mass Index 36.78 01/08/2024 4:19 PM EDT documented in this encounter Progress Notes * Bari Peoples MD - 03/21/2024 9:09 AM EST Patient is doing well no significant complaints. Good movement. * Erika Ruby LPN - 03/21/2024 9:02 AM EST 35w1d Denies vaginal bleeding/rom + movement No new concerns documented in this encounter Plan of Treatment Upcoming Encounters Date Type Department Care Team (Late st Contact Info) Description 04/02/2024 11:30 AM EST Office Visit Gynecology/Obstetrics [facility] [address] [place] [address] Cindy Gonsales PA-C [address] [place] [address] Health Maintenance Due Date Last Done Comments Hepatitis B Vaccine (1 of 3 - 19+ 3-dose series) 2009 HPV/Co-Test 01/06/2020 Depression Screening 04/23/2021 04/23/2020 COVID-19 Vaccine (3 2023-25 season) 2023 09/29/2020, 09/08/2020 TSH 09/06/2024 09/07/2023 [...] vaccination documented in this encounter Care Teams Newspaper Writer Relationship Specialty Start Date End Date [place] [address] [id number] PCP - General Family Medicine 04/23/20 documented as of this encounter
--- OUTSIDE RECORDS SUMMARY | 2024-04-18 02:41 | External Medical Summary | Summary of Care ---
Author Name Unknown Organization [facility] Address [address] [facility] [place] [address] Phone [phone] Care Team Providers Care Command And Control Officer Name Role Phone Leida Mcclain MD Primary Care Provider [phone] Reason for Visit * Reason Comments Return Visit Encounter Details Date Type Department Care Team (Late st Contact Info) Description 04/16/2024 8:00 AM EST [facility] [address] [place] [address] Corinna Lucio CRNP [address] [place] [address] Encounter for supervision of other normal in third trimester*; Hypothyroid in , antepartum; Anxiety during ; Obesity in , antepartum; Antepartum anemia complicating ; History of respiratory syncytial virus (RSV) vaccination Allergies Active Allergy Reactions Criticality Noted Date Comments Latex 08/22/2018 documented as of this encounter (statuses as of 04/16/2024) Medications ZyrTEC Allergy 10 MG Oral Capsule [...] as of this encounter (statuses as of 04/16/2024) Active Problems Problem Noted Date Diagnosed Date [...] as of this encounter (statuses as of 04/16/2024) Resolved Problems Problem Noted Date Diagnosed Date Resolved Date Carrier of group B Streptococcus 10/09/2020 11/23/2021 documented as of this encounter (statuses as of 04/16/2024) Immunizations Name Administration Dates Next Due RSV [...] money to get more. Never true 12/12/2023 [place] Depression Scale Answer Date Recorded [place] Depression Scale Total 7 03/07/2024 The thought [...] Sign Reading Time Taken Comments Blood Pressure 120/70 04/16/2024 8:00 AM EST Pulse - - Temperature - - Respiratory Rate - - Oxygen Saturation - - Inhaled Oxygen Concentration - - Weight 102.1 kg (225 lb) 04/16/2024 8:00 AM EST Height - - Body Mass Index 37.44 04/02/2024 11:21 AM EST documented in this encounter Progress Notes * Corinna Lucio CRNP - 04/16/2024 8:13 AM EST 38w6d No concerns. Baby is active. No contractions or bleeding. Agreeable to schedule IOL. Requesting cervical check. Tape Librarian Documentation Provider requested assistant clinical director. Name of assistant clinical director: BISHOP Mane * Vashti Nash CMA - 04/16/2024 8:00 AM EST 38w6d Possible loss of mucus. documented in this encounter Plan of Treatment Upcoming Encounters Date Type Department Care Team (Late st Contact Info) Description 04/24/2024 8:30 AM EST Office Visit Gynecology/Obstetrics [facility] [address] [place] [address] Tami Maurice CRNP [address] [place] [address] Health Maintenance Due Date Last Done Comments [...] vaccination documented in this encounter Care Teams Command And Control Officer Relationship Specialty Start Date End Date Leida Mcclain MD [address], [place] [id number] PCP - General Family Medicine 04/23/20 documented as of this encounter
--- OUTSIDE RECORDS SUMMARY | 2024-04-18 02:41 | External Medical Summary | Summary of Care ---
Author Name Unknown Organization [facility] Address [address] [place] [address] Phone [phone] Care Team Providers Care Head And Neck Surgeon Name Role Phone Leida Mcclain MD Primary Care Provider [phone] Reason for Visit * Reason Comments Outpatient Testing Encounter Details Date Type Department Care Team (Late st Contact Info) Description 03/07/2024 9:40 AM EST Laboratory Laboratory, [facility] [address] [place] [address] [facility] [address] [place] [address] Antepartum anemia complicating Allergies Active Allergy Reactions Criticality Noted Date Comments Latex 08/22/2018 documented as of this encounter (statuses as of 03/07/2024) Medications ZyrTEC Allergy 10 MG Oral Capsule [...] mouth in the morning. 60 Tablet 2 Active Cyanocobalamin 2500 MCG Sublingual Tablet Sublingual Place 1 Tablet under the tongue. Active documented as of this encounter (statuses as of 03/07/2024) Active Problems Problem Noted Date Diagnosed Date [...] as of this encounter (statuses as of 03/07/2024) Resolved Problems Problem Noted Date Diagnosed Date Resolved Date Carrier of group B Streptococcus 10/09/2020 11/23/2021 documented as of this encounter (statuses as of 03/07/2024) Immunizations Name Administration Dates Next Due RSV [...] money to get more. Never true 12/12/2023 [place] Depression Scale Answer Date Recorded [place] Depression Scale Total 7 03/07/2024 The thought [...] PM EDT documented as of this encounter Plan of Treatment Upcoming Encounters Date Type Department Care Team (Late st Contact Info) Description 03/21/2024 9:15 AM EST Office Visit Gynecology/Obstetrics [facility] [address] [place] [address] Bari Peoples MD [address] [place] [address] Pending Results Name Type Priority Associated Diagnoses Date /Time CBC WITH WBC DIFFERENTIAL AND ANEMIA REFLEX WORKUP Lab Routine Antepartum anemia complicating 03/07/2024 9:20 AM EST ANEMIA CBC Lab Routine Antepartum anemia complicating 03/07/2024 9:20 AM EST DIFFERENTIAL, AUTOMATED Lab Routine Antepartum anemia complicating 03/07/2024 9:20 AM EST ANEMIA REFLEX CHEMISTRY HOLD Lab Routine Antepartum anemia complicating 03/07/2024 9:20 AM EST Health Maintenance Due Date Last Done Comments Hepatitis B Vaccine (1 of 3 - 19+ 3-dose series) 2009 HPV/Co-Test 01/06/2020 Depression Screening 04/23/2021 04/23/2020 COVID-19 Vaccine ( season) 2023 09/29/2020, 09/08/2020 TSH 09/06/2024 09/07/2023 Cervical Cancer Screening 11/23/2024 Pap Smear 11/23/2024 11/23/2021, 05/04, 03/20/2018 DTap/Tdap Vaccines (3 - Td or Tdap) 02/04/2034 02/05/2024, 08/21/2020 MENINGOCOCCAL (MENACTRA/MENVEO) Completed 11/02/2006 HPV (Gardasil) Vaccine Completed , 2007, 11/02/2006 Influenza Vaccine (FLU shot) Completed 02/2024, 12/15/2022, 12/21/2021, Additional history exists Pneumococcal Vaccine: Pediatrics (0 to 5 Years) and At-Risk Patients (6 to 64 Years) Aged Out No longer eligible based on patient's age to complete this topic documented as of this encounter Medical Devices Not on filedocumented as of this encounter Visit Diagnoses Diagnosis Antepartum anemia complicating Anemia, antepartum documented in this encounter Care Teams Head And Neck Surgeon Relationship Specialty Start Date End Date [place] [id number] PCP - General Family Medicine 04/23/20 documented as of this encounter
--- OUTSIDE RECORDS SUMMARY | 2024-04-18 02:41 | External Medical Summary | Summary of Care ---
Author Name Unknown Organization [facility] Address [address] [place] [address] Phone [phone] Care Team Providers Care Roundhouse Firer/Fireman Name Role Phone Leida Mcclain MD Primary Care Provider [phone] Reason for Visit * Reason Comments Return Visit Encounter Details Date Type Department Care Team (Late st Contact Info) Description 04/10/2024 2:00 PM EST Office [facility] [address] [place] [address] Corinna Lucio CRNP [address] [place] [address] Encounter for supervision of normal first in third trimester*; Hypothyroid in , antepartum; Anxiety during ; Obesity in , antepartum; Antepartum anemia complicating ; History of respiratory syncytial virus (RSV) vaccination Allergies Active Allergy Reactions Criticality Noted Date Comments Latex 08/22/2018 documented as of this encounter (statuses as of 04/10/2024) Medications ZyrTEC Allergy 10 MG Oral Capsule [...] as of this encounter (statuses as of 04/10/2024) Active Problems Problem Noted Date Diagnosed Date [...] as of this encounter (statuses as of 04/10/2024) Resolved Problems Problem Noted Date Diagnosed Date Resolved Date Carrier of group B Streptococcus 10/09/2020 11/23/2021 documented as of this encounter (statuses as of 04/10/2024) Immunizations Name Administration Dates Next Due RSV [...] money to get more. Never true 12/12/2023 [place] Depression Scale Answer Date Recorded [place] Depression Scale Total 7 03/07/2024 The thought [...] Sign Reading Time Taken Comments Blood Pressure 122/68 04/10/2024 1:59 PM EST Pulse - - Temperature - - Respiratory Rate - - Oxygen Saturation - - Inhaled Oxygen Concentration - - Weight 103.6 kg (228 lb 6.4 oz) 04/10/2024 1:59 PM EST Height - - Body Mass Index 38.01 04/02/2024 11:21 AM EST documented in this encounter Progress Notes * Corinna Lucio CRNP - 04/10/2024 2:12 PM EST 38w No complaints. Baby is active. Denies contractions, bleeding, LOF. Unsure if breast or bottle feeding. Asking for cervical check. Multimedia Teacher Documentation Provider requested associate director career services. Name of associate director career services: BISHOP Mane * Vashti Nash CMA - 04/10/2024 1:59 PM EST 38w0d Requesting cervical check documented in this encounter Plan of Treatment Upcoming Encounters Date Type Department Care Team (Late st Contact Info) Description 04/16/2024 8:00 AM EST Office Visit Gynecology/Obstetrics Reina Lynne [address] [place] [address] Corinna Lucio CRNP [address] [place] [address] Health Maintenance Due Date Last Done Comments [...] Visit Diagnoses Diagnosis Encounter for supervision of normal first in third trimester- Primary Supervision of normal first Hypothyroid in , antepartum Thyroid dysfunction, antepartum Anxiety during Obesity in , antepartum Obesity complicating , childbirth, or the puerperium, antepartum condition or complication Antepartum anemia complicating Anemia, antepartum History of respiratory syncytial virus (RSV) vaccination documented in this encounter Care Teams Roundhouse Firer/Fireman Relationship Specialty Start Date End Date [place] [address] [address] PCP - General Family Medicine 04/23/20 documented as of this encounter
--- OUTSIDE RECORDS SUMMARY | 2024-04-18 02:41 | External Medical Summary ---
Author Name Unknown Address Unknown Organization K01:[facility] [place] [address] [place] [address] Laboratory Report Ordering Provider Test Date Status EMMANUEL HANLEY 04/02/2024 12:25:02 Final Observation Date Value Abnormality Reference (Units ) Status Streptococcus agalactiae DNA [Presence] in Specimen by PATRICIA with probe detection 04/02/2024 12:25:02 Negative Negative Final No Group B Streptococcus det ected by culture-enhanced PCR (amplified probe). GBS GBSCT - [facility] 04/02/2024 12:25:02 0.0 Final GBS SPCCT - [facility] 04/02/2024 12:25:02 30.7 Final Performing Location [facility] [place] - [address] [place] [address]
--- OUTSIDE RECORDS SUMMARY | 2024-04-18 02:42 | External Medical Summary ---
Author Name Unknown Address Unknown Organization [id number]:[facility] [place] [address] [place] [address] Laboratory Report Ordering Provider Test Date Status KARO FREEDMAN 03/07/2024 09:20:02 Final Observation Date Value Abnormality Reference (Units ) Status Ferritin 03/07/2024 09:20:02 19 13-150 (ng /mL) Final Performing Location [facility] [place] [address] [place] [address]
--- OUTSIDE RECORDS SUMMARY | 2024-04-18 02:42 | External Medical Summary ---
Author Name Unknown Address Unknown Organization K0G:[facility] [address] - [address] [place] [address] Laboratory Report Ordering Provider Test Date Status KARO FREEDMAN 03/07/2024 09:20:02 Final Observation Date Value Abnormality Reference (Units ) Status SYNC LEUKOCYTES IN BLOOD BY AUTOMATED COUNT 03/07/2024 09:20:02 12.96 Above high normal 4.00-10.80 (K/uL) Final Neutrophils/100 leukocytes in Blood by Manual count 03/07/2024 09:20:02 77.0 Above high normal 40.0-75.0 (%) Final Lymphocytes/100 leukocytes in Blood by Manual count 03/07/2024 09:20:02 11.0 Below low normal 18.0-42.0 (%) Final Monocytes/100 leukocytes in Blood by Manual count 03/07/2024 09:20:02 8.0 1.0-11.0 (%) Final Eosinophils/100 leukocytes in Blood by Manual count 03/07/2024 09:20:02 2.0 0.0-6.0 (%) Final Metamyelocytes/100 leukocytes in Blood by Manual count 03/07/2024 09:20:02 2.0 Above high normal <=0.0 (%) Final Neutrophils [#/volume] in Blood by Manual count 03/07/2024 09:20:02 9.98 Above high normal 1.80-7.70 (K/uL) Final Lymphocytes [#/volume] in Blood by Manual count 03/07/2024 09:20:02 1.43 1.00-4.80 (K/uL) Final Monocytes [#/volume] in Blood by Manual count 03/07/2024 09:20:02 1.04 0.00-1.10 (K/uL) Final Eosinophils [#/volume] in Blood by Manual count 03/07/2024 09:20:02 0.26 0.00-0.70 (K/uL) Final Metamyelocytes [#/volume] in Blood by Manual count 03/07/2024 09:20:02 0.26 Above high normal <=0.00 (K/uL) Final Nucleated erythrocytes/100 leukocytes [Ratio] in Blood by Automated count 03/07/2024 09:20:02 Final Variant lymphocytes [Presence] in Blood by Light microscopy 03/07/2024 09:20:02 Present Abnormal None Seen Final Giant platelets [Presence] in Blood by Light microscopy 03/07/2024 09:20:02 Present Abnormal None Seen Final Performing Location [facility] [address] - [address] [facility] [place] [address]
--- OUTSIDE RECORDS SUMMARY | 2024-04-18 02:42 | External Medical Summary ---
Author Name Unknown Address Unknown Organization [id number]:[facility] - [address] [place] [address] Laboratory Report Ordering Provider Test Date Status KARO FREEDMAN 03/07/2024 09:20:02 Final Observation Date Value Abnormality Reference (Units ) Status Creatinine 03/07/2024 09:20:02 0.6 0.5-1.0 (mg/dL) Final Glomerular filtration rate/1.73 sq M.predicted [Volume Rate/Area] in Serum, Plasma or Blood by Creatinine-based formula (CKD-EPI) 03/07/2024 09:20:02 >90 >=60 (mL/min) Final eGFR is calculated based on the CKD-EPI 2020 equation. Performing Location LAB[facility] - [address] [place] [address]
--- OUTSIDE RECORDS SUMMARY | 2024-04-18 02:42 | External Medical Summary | Summary of Care ---
Author Name Unknown Organization [facility] Address [address] [place] [address] Phone [phone] Care Team Providers Care Award Clerk Name Role Phone Leida Mcclain MD Primary Care Provider [phone] Reason for Visit * Reason Comments Outpatient Testing Encounter Details Date Type Department Care Team (Late st Contact Info) Description 02/05/2024 8:20 AM EST Laboratory Laboratory, [facility] [address] [place] [address] [facility] [address] [place] [address] [employer] Other*[id number]; Encounter for supervision of other normal in second trimester Allergies Active Allergy Reactions Criticality Noted Date Comments Latex 08/22/2018 documented as of this encounter (statuses as of 02/05/2024) Medications Medication Sig Dispensed Refills Start Date End Date Status ZyrTEC Allergy 10 MG Oral Capsule (Cetirizine HCl) Take 1 Capsule by mouth in the morning. Active 1 30-0.975-200 MG Oral Capsule Take 1 Capsule by mouth in the morning. Active Probiotic Acidophilus BioBeads Oral Capsule Take 1 Cap by mouth three times a day with meals. Active Synthroid 50 MCG Oral Tablet 11/14/2021 Active Sertraline HCl 50 MG Oral Tablet (Zoloft) 11/14/2021 Active Promethazine HCl 25 MG Oral Tablet (Phenergan) Take 1 Tablet by mouth every 6 hours as needed for Nausea. 30 Tablet 1 09/18/2023 Active Additional Information Patient not taking.Reported on 10/02/2023 documented as of this encounter (statuses as of 02/05/2024) Active Problems Problem Noted Date Diagnosed Date Anxiety during 10/31/2023 Obesity in , antepartum 10/31/2023 Overview: Class 1 The patient's pre-gravid BMI is 32.28. Normal early GTT Hypothyroid in , antepartum 09/07/2023 Overview: On Synthroid 50 mg TSH Results: Lab Results Component Value Date/Time TSH - ROCAELER 3.53 09/07/2023 04:57 PM 10/12/23: 1.007 Acquired hypothyroidism 05/25/2021 Supervision of normal 03/26/2020 Other forms of migraine, wit hout mention of intractable migraine without mention of status migrainosus 02/01/2006 Estimated Date of Delivery Comme nts Yes 04/24/2024 Based on Ultraso und documented as of this encounter (statuses as of 02/05/2024) Resolved Problems Problem Noted Date Diagnosed Date Resolved Date Carrier of group B Streptococcus 10/09/2020 11/23/2021 documented as of this encounter (statuses as of 02/05/2024) Immunizations Name Administration Dates Next Due Seasonal Influenza, PF, 6 M & above, [...] money to get more. Never true 12/12/2023 [place] Depression Scale Answer Date Recorded [place] Depression Scale Total 7 09/07/2023 The thought of harming myself has occurred to me . Never 09/07/2023 Childcare Answer Date Recorded Do you feel [...] Assigned at Female 11/10/2021 1:10 PM EDT Gender Identity Female 11/10/2021 1:10 PM EDT Sexual Orientation Straight 11/10/2021 1: 10 PM EDT Job Start Date Occupation Industry Not on file Not on file Not on file documented as of this encounter Plan of Treatment Upcoming Encounters Date Type Department Care Team (Late st Contact Info) Description 02/19/2024 8:45 AM EST Office Visit Gynecology/Obstetrics Reina Lynne [address] [place] [address] [place], TamiBISHOP Contreras [address] [place] [address] Pending Results Name Type Priority Associated Diagnoses Date /Time MYCODE INITIAL ADULT Lab Routine MyCode Research Other*[id number] 02/05/2024 9:27 AM EST CBC WITH WBC DIFFERENTIAL AND ANEMIA REFLEX WORKUP Lab Routine Encounter for supervision of other normal in second trimester 02/05/2024 9:27 AM EST SYPHILIS ANTIBODY SCREEN WITH REFLEX TO RPR Lab Routine Encounter for supervision of other normal in second trimester 02/05/2024 9:27 AM EST 50-G GESTATIONAL GLUCOSE, 1 HOUR Lab Routine Encounter for supervision of other normal in second trimester 02/05/2024 9:27 AM EST MYCODE INITIAL ADULT-PINK Lab Routine [employer] Other*[id number] 02/05/2024 9:27 AM EST MYCODE SST1 Lab Routine [employer] Other*[id number] 02/05/2024 9:27 AM EST MYCODE SST2 Lab Routine [employer] Other*[id number] 02/05/2024 9:27 AM EST ANEMIA CBC Lab Routine Encounter for supervision of other normal in second trimester 02/05/2024 9:27 AM EST DIFFERENTIAL, AUTOMATED Lab Routine Encounter for supervision of other normal in second trimester 02/05/2024 9:27 AM EST ANEMIA REFLEX CHEMISTRY HOLD Lab Routine Encounter for supervision of other normal in second trimester 02/05/2024 9:27 AM EST SYPHILIS ANTIBODY SCREEN Lab Routine Encounter for supervision of other normal in second trimester 02/05/2024 9:27 AM EST Health Maintenance Due Date Last [...] as of this encounter Visit Diagnoses Diagnosis [employer] Other*[id number] Encounter for supervision of other normal in second trimester documented in this encounter Care Teams Award Clerk Relationship Specialty Start Date End Date [place] [address] [address] PCP - General Family Medicine 04/23/20 documented as of this encounter
--- OUTSIDE RECORDS SUMMARY | 2024-04-18 02:42 | External Medical Summary | Summary of Care ---
Author Name Unknown Organization [facility] Address [address] [facility] [place] [address] Phone [phone] Care Team Providers Care Heat Treater Name Role Phone Leida Mcclain MD Primary Care Provider [phone] Encounter Details Date Type Department Care Team ([facility] Contact Info) Description 02/07/2024 Telephone Gynecology/Obst[facility] [address] [place] [address] Cindy Gonsales PA-C [address] [facility] [place] [address] Allergies Active Allergy Reactions Criticality Noted Date Comments Latex 08/22/2018 documented as of this encounter (statuses as of 02/07/2024) Medications Medication Sig Dispensed Refills Start Date [...] Additional Information Patient not taking.Reported on 10/02/2023 Breast PumpIndications:Jaci ast feeding status of mother Z39.1, CATERINA 04/24/24, double electric pump 1 Each 02/05/2024 Active Iron-Vitamin C 65-125 MG Oral Tablet (Vitron C) Take 1 Tablet by mouth in the morning. 60 Tablet 2 02/07/2024 Active documented as of this encounter (statuses as of 02/07/2024) Active Problems Problem Noted Date Diagnosed Date Antepartum anemia complicating 024 Overview: Hgb 11.6 at 28-29 weeks, started on [...] as of this encounter (statuses as of 02/07/2024) Resolved Problems Problem Noted Date Diagnosed Date Resolved Date Carrier of group B Streptococcus 10/09/2020 11/23/2021 documented as of this encounter (statuses as of 02/07/2024) Immunizations Name Administration Dates Next Due Seasonal [...] money to get more. Never true 12/12/2023 [place] Depression Scale Answer Date Recorded [place] Depression Scale Total 7 09/07/2023 The thought [...] on file documented as of this encounter Miscellaneous Notes * Telephone Encounter - Stephanie Leung LPN - 02/07/2024 8:55 AM EST Spoke with pt she verbalized understanding * Telephone Encounter - Cindy Gonsales PA-C - 02/07/2024 8:49 AM EST Please let patient know. Passed glucose testing, no evidence of gestational diabetes. She is slightly anemic. Hemoglobin 11.6, would recommend start daily PO iron. Take apart from vitamin and calcium. Can constipate and darken stools. Will recheck in about 4 weeks. I sent it to pharmacy for her. Cindy Gonsales PA-C documented in this encounter Plan of Treatment Upcoming Encounters Date Type Department Care Team (Late st Contact Info) Description 02/19/2024 8:45 AM EST Office Visit Gynecology/Obstetrics Reina Lynne [address] [place] [address] [place], BISHOP Rai [address] [place] [address] Health Maintenance Due Date Last Done Comments [...] filedocumented as of this encounter Care Teams Heat Treater Relationship Specialty Start Date End Date [place] [address] [address] PCP - General Family Medicine 04/23/20 documented as of this encounter
--- OUTSIDE RECORDS SUMMARY | 2024-04-18 02:42 | External Medical Summary | Summary of Care ---
Author Name Unknown Organization [facility] Address [address] [facility] [place] [address] Phone [phone] Care Team Providers Care Product Coordinator Name Role Phone Leida Mcclain MD Primary Care Provider [phone] Reason for Visit * Reason Comments Return Visit Encounter Details Date Type Department Care Team (Late st Contact Info) Description 02/19/2024 8:45 AM EST Office Visit Gynecology/Obstetric s [facility] [address] [place] [address] BackTami pope CRNP [address] [place] [address] Encounter for supervision of other normal in third trimester*; Hypothyroid in , antepartum; Anxiety during ; Obesity in , antepartum; Antepartum anemia complicating Allergies Active Allergy Reactions Criticality Noted Date Comments Latex 08/22/2018 documented as of this encounter (statuses as of 02/19/2024) Medications ZyrTEC Allergy 10 MG Oral Capsule [...] 50 MG Oral Tablet (Zoloft) 2 Active Promethazine HCl 25 MG Oral Tablet (Phenergan) Take 1 Tablet by mouth every 6 hours as needed for Nausea. 30 Tablet 1 4 Active Additional Information Patient not taking.Reported on 02/19/2024 Breast PumpIndications: Breast feeding status of mother Z39.1, CATERINA 04/24/24, double electric pump 1 Each 4 Active Iron-Vitamin C 65-125 MG Oral Tablet (Vitron C) Take 1 Tablet by mouth in the morning. 60 Tablet 2 4 Active Cyanocobalamin 2500 MCG Sublingual Tablet Sublingual Place 1 Tablet under the tongue. Active documented as of this encounter (statuses as of 02/19/2024) Active Problems Problem Noted Date Diagnosed Date Antepartum anemia complicating 024 Overview (02/07/2024): Hgb [...] as of this encounter (statuses as of 02/19/2024) Resolved Problems Problem Noted Date Diagnosed Date Resolved Date Carrier of group B Streptococcus 10/09/2020 11/23/2021 documented as of this encounter (statuses as of 02/19/2024) Immunizations Name Administration Dates Next Due Seasonal [...] to get more. Never true 12/12/2023 [place] Depression Scale Answer Date Recorded [place] Depression Scale Total 7 09/07/2023 The thought [...] Sign Reading Time Taken Comments Blood Pressure 102/58 02/19/2024 8:42 AM EST Pulse - - Temperature - - Respiratory Rate - - Oxygen Saturation - - Inhaled Oxygen Concentration - - Weight 95.5 kg (210 lb 8 oz) 02/19/2024 8:42 AM EST Height - - Body Mass Index 35.03 01/08/2024 4:19 PM EDT documented in this encounter Progress Notes * Tami Maurice CRNP - 02/19/2024 8:58 AM EST 30w5d Overall well. Anxiety is managed. No regular ctx, leaking/bleeding. Baby moving a lot. Discussed OTC supplements for LEE prevention. 2 week return BISHOP Garvey * Vashti Nash CMA - 02/19/2024 8:42 AM EST 30w5d + headaches, usually goes away own. + lower back pain documented in this encounter Plan of Treatment Upcoming Encounters Date Type Department Care Team (Late st Contact Info) Description 03/04/2024 1:30 PM EST Office Visit Gynecology/Obstetrics Reina Lynne [address] [place] [address] BackerTami CRNP [address] [place] [address] Health Maintenance Due Date Last Done Comments [...] or complication Antepartum anemia complicating Anemia, antepartum documented in this encounter Care Teams Product Coordinator Relationship Specialty Start Date End Date Leida Mcclain MD [address] [phone] PCP - General Family Medicine 04/23/20 documented as of this encounter
--- OUTSIDE RECORDS SUMMARY | 2024-04-18 02:42 | External Medical Summary | Summary of Care ---
Author Name Unknown Organization [facility] Address [address] [place] [address] Phone [phone] Care Team Providers Care Slps Name Role Phone Leida Mcclain MD Primary Care Provider [phone] Encounter Details Date Type Department Care Team (Late st Contact Info) Description 02/12/2024 Orders Only Outcomes Research Department [address] [place] [address] Kristin Carroll CHRA [employer] [facility] Other*[id number] Allergies Active Allergy Reactions Criticality Noted Date Comments Latex 08/22/2018 documented as of this encounter (statuses as of 02/12/2024) Medications ZyrTEC Allergy 10 MG Oral Capsule [...] Information Patient not taking.Reported on 10/02/2023 Breast PumpIndications: Breast feeding status of mother Z39.1, CATERINA 04/24/24, double electric pump 1 Each 4 Active Iron-Vitamin C 65-125 MG Oral Tablet (Vitron C) Take 1 Tablet by mouth in the morning. 60 Tablet 2 4 Active documented as of this encounter (statuses as of 02/12/2024) Active Problems Problem Noted Date Diagnosed Date [...] Lab Results Component Value Date/Time TSH - JOCELINEVIJIER 3.53 09/07/2023 04:57 PM 10/12/23: 1.007 Acquired hypothyroidism 05/25/2021 Supervision of normal 03/26/2020 Other forms of migraine, wit hout mention of intractable migraine without mention of status migrainosus 02/01/2006 Estimated Date of Delivery Comme nts Yes 04/24/2024 Based on Ultraso und documented as of this encounter (statuses as of 02/12/2024) Resolved Problems Problem Noted Date Diagnosed Date Resolved Date Carrier of group B Streptococcus 10/09/2020 11/23/2021 documented as of this encounter (statuses as of 02/12/2024) Immunizations Name Administration Dates Next Due Seasonal [...] money to get more. Never true 12/12/2023 [place] Depression Scale Answer Date Recorded [place] Depression Scale Total 7 09/07/2023 The thought [...] Reina Lynne [address] [place] [address] Tami Maurice CRNP [address] [place] [address] Scheduled Orders Name Type Priority Associated Diagnoses Orde r Schedule MYCODE SUBSEQUENT ADULT Lab Routine [facility] Other*[id number] Every 6 Months for 2 Occurrences starting 02/12/2024 until 03/03/2025 Health Maintenance Due Date Last Done Comments [...] this encounter Visit Diagnoses Diagnosis [facility] Other*[id number] documented in this encounter Care Teams Slps Relationship Specialty Start Date End Date Leida Mcclain MD [address] [id number] PCP - General Family Medicine 04/23/20 documented as of this encounter
--- OUTSIDE RECORDS SUMMARY | 2024-04-18 02:42 | External Medical Summary ---
Author Name Unknown Address Unknown Organization [id number]:LABORATORY [facility] [address] - [address] [place] [address] Laboratory Report Ordering Provider Test Date Status KARO FREEDMAN 03/07/2024 09:20:02 Final Observation Date Value Abnormality Reference (Units ) Status WBC, Total 03/07/2024 09:20:02 12.96 Above high normal 4 .00-10.80 (K/uL) Final RBC 03/07/2024 09:20:02 3.90 3.85-5.15 (M/uL) Final Hemoglobin 03/07/2024 09:20:02 11.2 Below low normal 12 .0-15.3 (g/dL) Final Anemia reflex testing trigge rs on a HGB < 12.0 for Females and HGB < 13.0 for Males in accordance with the WHO Anemia Guidelines
Anemia reflex testing triggers on a HGB < 12.0 for Females and HGB < 13.0 for Males in accordance with the WHO Anemia Guidelines HCT 03/07/2024 09:20:02 34.2 Below low normal 36. 0-45.2 (%) Final MCV 03/07/2024 09:20:02 87.7 81.5-97.5 (fL) Final MCH 03/07/2024 09:20:02 28.7 27.0-34.0 (pg) Final MCHC 03/07/2024 09:20:02 32.7 32.0-36.0 (g/dL) Final RDW 03/07/2024 09:20:02 14.4 11.5-15.5 (%) Final Platelets 03/07/2024 09:20:02 249 140-400 (K /uL) Final MPV 03/07/2024 09:20:02 11.7 6.6-11.1 ( fL) Final Performing Location [facility]ORY [facility] [address] - [address] [place] [address]
--- OUTSIDE RECORDS SUMMARY | 2024-04-18 02:42 | External Medical Summary ---
Author Name Unknown Address Unknown Organization [id number]:LABORATORY [facility] [place] - [address] [place] [address] Laboratory Report Ordering Provider Test Date Status MU FREEDMANER 03/07/2024 09:20:02 Final Observation Date Value Abnormality Reference (Units ) Status Retic, % (auto) 03/07/2024 09:20:02 2.91 Above high normal 0.80-1.90 (%) Final Reticulocytes, Absolute 03/07/2024 09:20:02 116.1 Above high normal 31.3-100.1 (K/uL) Final Reticulocyte fraction, immature 03/07/2024 09:20:02 28.9 Above high normal 2.5-20.6 (%) Final Reticulocyte HGB 03/07/2024 09:20:02 30.7 29.7-37.4 (pg) Final Performing Location LAB[facility]ATORY [facility] [place] - [address] [place] [address]
--- OUTSIDE RECORDS SUMMARY | 2024-04-18 02:42 | External Medical Summary | Summary of Care ---
Author Name Unknown Organization [facility] Address [address] [facility] [place] [address] Phone [phone] Care Team Providers Care Senior Property Manager Name Role Phone Leida Mcclain MD Primary Care Provider [phone] Reason for Visit * Reason Comments Return Visit Encounter Details Date Type Department Care Team ([facility] st Contact Info) Description 03/07/2024 9:15 AM EST Office Visit Gynecology/Obstetric s [facility] [address] [place] [address] BackTami pope CRNP [address] [place] [address] Encounter for supervision of other normal in third trimester*; Hypothyroid in , antepartum; Anxiety during ; Obesity in , antepartum; Antepartum anemia complicating ; Need for prophylactic vaccination and inoculation against respiratory syncytial virus (RSV) Allergies Active Allergy Reactions Criticality Noted Date [...] Place 1 Tablet under the tongue. Active Promethazine HCl 25 MG Oral Tablet (Phenergan) Take 1 Tablet by mouth every 6 hours as needed for Nausea. 30 Tablet 1 4 03/07/20 24 Discontinu ed(Medicat ion List Clean Up) documented as of this encounter (statuses as [...] money to get more. Never true 12/12/2023 [place] Depression Scale Answer Date Recorded [place] Depression Scale Total 7 03/07/2024 The thought [...] No 12/12/2023 Does the household have a [facility] source of income? (Household - for ages [...] Sign Reading Time Taken Comments Blood Pressure 114/60 03/07/2024 8:54 AM EST Pulse - - Temperature - - Respiratory Rate - - Oxygen Saturation - - Inhaled Oxygen Concentration - - Weight 98.4 kg (217 lb) 03/07/2024 8:54 AM EST Height - - Body Mass Index 36.11 01/08/2024 4:19 PM EDT documented in this encounter Progress Notes * Tami Maurice CRNP - 03/07/2024 9:01 AM EST 33w1d Baby moving well. No ctx, leaking, bleeding. Has labor instructions. Will recheck CBC today. Counseled on RSV vaccine, will administer today. Return in 2 weeks. BISHOP Garvey * Erika Ruby LPN - 03/07/2024 8:54 AM EST 33w1d Denies vaginal bleeding/rom + movement Labor instructions given No new concerns documented in this encounter Nursing Notes * Erika Ruby LPN - 03/07/2024 9:12 AM EST Patient here for RSV injection. Patient doing well no complaints. Injection given IM as ordered. Patient tolerated well. Patient to follow up as directed. Patient instructed to call if any complications. Patient verbalized understanding of instructions given. Injection site: Right Deltoid Medication Source: Dispensed stock medication documented in this encounter Plan of Treatment Upcoming Encounters Date Type Department Care Team (Late st Contact Info) Description 03/07/2024 9:40 AM EST Laboratory Laboratory, [facility] [address] [place] [phone] [facility] [address] [place] [address] Antepartum anemia complicating 03/21/2024 9:15 AM EST Office Visit Gynecology/Obstetric s [facility] [address] [place] [address] Bari Peoples MD [address] [place] [phone] Pending Results Name Type Priority Associated Diagnoses Date /Time CBC WITH WBC DIFFERENTIAL AND ANEMIA REFLEX WORKUP Lab Routine Antepartum anemia complicating 03/07/2024 9:20 AM EST Scheduled Orders Name Type Priority Associated Diagnoses Orde r Schedule CBC WITH WBC DIFFERENTIAL AND ANEMIA REFLEX WORKUP Lab Routine Antepartum anemia complicating Expected: 03/07/2024 (Approximate), Expires: 03/07/2025 Health Maintenance Due Date Last Done Comments [...] or complication Antepartum anemia complicating Anemia, antepartum Need for prophylactic vaccination and inoculation against respiratory syncytial virus (RSV) Antepartum anemia complicating Anemia, antepartum documented in this encounter Care Teams Senior Property Manager Relationship Specialty Start Date End Date Leida Mcclain MD [address] [phone] PCP - General Family Medicine 04/23/20 documented as of this encounter
--- OUTSIDE RECORDS SUMMARY | 2024-04-18 02:43 | External Medical Summary | Summary of Care ---
Author Name Unknown Organization [facility] Address [address] [place] [address] Phone [phone] Care Team Providers Care Fuel Cell Test Engineer Name Role Phone Leida Mcclain MD Primary Care Provider [phone] Reason for Visit * Reason Comments Return Visit Encounter Details Date Type Department Care Team (Late st Contact Info) Description 12/13/2023 3:00 PM EDT Office Visit Gynecology/Obstetric s Reina Lynne [address] [place] [address] Corinna Lucio CRNP [address] [facility] [place] [address] Encounter for supervision of other normal in second trimester*; Hypothyroid in , antepartum; Anxiety during ; Obesity in , antepartum; Encounter for follow-up ultrasound of anatomy; Flu vaccine need Allergies Active Allergy Reactions Criticality Noted Date Comments Latex 08/22/2018 documented as of this encounter (statuses as of 12/13/2023) Medications Medication Sig Dispensed Refills Start Date [...] as of this encounter (statuses as of 12/13/2023) Active Problems Problem Noted Date Diagnosed Date [...] as of this encounter (statuses as of 12/13/2023) Resolved Problems Problem Noted Date Diagnosed Date Resolved Date Carrier of group B Streptococcus 10/09/2020 11/23/2021 documented as of this encounter (statuses as of 12/13/2023) Immunizations Name Administration Dates Next Due Seasonal Influenza, PF, 6 M & above, IM , (FluLaval or Fluzone) 12/15/2022 Seasonal Influenza, Trivalent, (IIV3), PF, (Fluz one) 12/13/2023 TDAP (age 10 and older)(Boostrix) 08/21/2020 documented as of this encounter Social History [...] money to get more. Never true 12/12/2023 [place] Depression Scale Answer Date Recorded [place] Depression Scale Total 7 09/07/2023 The thought [...] on file documented as of this encounter Last Filed Vital Signs Vital Sign Reading Time Taken Comments Blood Pressure 104/60 12/13/2023 2:34 PM EDT Pulse - - Temperature - - Respiratory Rate - - Oxygen Saturation - - Inhaled Oxygen Concentration - - Weight 90.6 kg (199 lb 12.8 oz) 12/13/2023 2:34 PM EDT Height - - Body Mass Index 33.25 10/31/2023 11:34 AM EDT documented in this encounter Progress Notes * Vashti Nash CMA - 12/13/2023 2:50 PM EDT Patient here for FLU vaccine injection. Patient doing well no complaints. Injection given IM as ordered. Patient tolerated well. Patient to follow up as directed. Patient instructed to call if any complications. Patient verbalized understanding of instructions given and her follow up appt for WALLY/ultrasound Injection site: Right Deltoid Medication Source: Dispensed stock medication * Corinna Lucio CRNP - 12/13/2023 2:48 PM EDT 21w0d Complaints: none +FM. No contractions, bleeding, or LOF. Anatomy u/s today, will need to return in 2 weeks for additional images. Flu vaccine today. BISHOP Wong * Vashti Nash CMA - 12/13/2023 2:34 PM EDT 21w0d Missed anatomy scan in 2 weeks + headaches, usually go away on their own Denies any concerns FLU vaccine today documented in this encounter Plan of Treatment Upcoming Encounters Date Type Department Care Team (Late st Contact Info) Description 01/01/2024 8:00 AM EDT Imaging Radiology [address] [place] [address] 01/08/2024 4:30 PM EDT Office Visit [facility]necology/Obstetrics [facility] [address] [place] [address] Cindy Gonsales PA-C [address] [place] [address] 01/24/2024 3:00 PM EDT Office Visit Gynecology/Obstetrics [facility] [address] [place] [address] Cindy Gonsales PA-C [address] [place] [address] Scheduled Orders Name Type Priority Associated Diagnoses Orde r Schedule US PREG LIMITED 1 OR MORE FETUSES Medical Imaging Routine Encounter for follow-up ultrasound of anatomy Expected: 12/27/2023, Expires: 01/11/2025 Health Maintenance Due Date Last Done Comments Hepatitis B Vaccine (1 of 3 - 19+ 3-dose series) 2009 HPV/Co-Test 01/06/2020 Depression Screening 04/23/2021 04/23/2020 COVID-19 Vaccine (2022- season) 2023 09/29/2020, 09/08/2020 TSH 09/06/2024 09/07/2023 Cervical Cancer Screening 11/23/2024 Pap Smear 11/23/2024 11/23/2021, 05/04, 03/20/2018 DTap/Tdap Vaccines (2 - Td or Tdap) 08/21/2030 08/21/2020 MENINGOCOCCAL (MENACTRA/MENVEO) Completed 11/02/2006 HPV (Gardasil) [...] for supervision of other normal in second trimester- Primary Hypothyroid in , antepartum Thyroid dysfunction, antepartum Anxiety during Obesity in , antepartum Obesity complicating , childbirth, or the puerperium, antepartum condition or complication Encounter for follow-up ultrasound of anatomy Flu vaccine need Need for prophylactic vaccination and inoculation against influenza documented in this encounter Care Teams Fuel Cell Test Engineer Relationship Specialty Start Date End Date [place] [address] [address] [place] [id number] PCP - General Family Medicine 04/23/20 documented as of this encounter
--- OUTSIDE RECORDS SUMMARY | 2024-04-18 02:43 | External Medical Summary ---
Author Name Unknown Address Unknown Organization [id number]:[facility] [place] [address] [facility] [place] [address] Laboratory Report Ordering Provider Test Date Status EMMANUEL HANLEY 02/05/2024 09:27:24 Final Observation Date Value Abnormality Reference (Units ) Status Ferritin 02/05/2024 09:27:24 13 13-150 (ng /mL) Final Performing Location [facility] [place] [address] [place] [address]
--- OUTSIDE RECORDS SUMMARY | 2024-04-18 02:43 | External Medical Summary | Summary of Care ---
Author Name Unknown Organization [facility] Address [address] [facility] [place] [address] Phone [phone] Care Team Providers Care Technical Stenographer Name Role Phone Leida Mcclain MD Primary Care Provider [phone] Encounter Details Date Type Department Care Team ([facility] Contact Info) Description 11/07/2023 Telephone Gynecology/Obstetrics [facility] [address] [place] [address] Jeremias [place] MD [address] [place] [address] Allergies Active Allergy Reactions Criticality Noted Date Comments Latex 08/22/2018 documented as of this encounter (statuses as of 11/07/2023) Medications Medication Sig Dispensed Refills Start Date [...] as of this encounter (statuses as of 11/07/2023) Active Problems Problem Noted Date Diagnosed Date [...] as of this encounter (statuses as of 11/07/2023) Resolved Problems Problem Noted Date Diagnosed Date Resolved Date Carrier of group B Streptococcus 10/09/2020 11/23/2021 documented as of this encounter (statuses as of 11/07/2023) Immunizations Name Administration Dates Next Due Seasonal Influenza, PF, 6 M & above, IM , (FluLaval or Fluzone) 12/15/2022 TDAP (age 10 and older)(Boostrix) 08/21/2020 documented [...] the money to buy more. Never true 11/22/19 23 Within the past 12 months, t he food you bought just didn't last and you didn't have money to get more. Never true 11/21/2022 [place] Depression Scale Answer Date Recorded [place] Depression Scale Total 7 09/07/2023 The thought of harming myself has occurred to me . Never 09/07/2023 Childcare Answer Date Recorded Do you feel overwhelmed with taking care of a child, family member or friend? No 11/21/2022 Does your family need help f inding childcare? (Household - for ages 0-17 years) Not on file 11/21/2022 Clothing Answer Date Recorded Have you been unable to get clothing when it was really needed? No 11/21/2022 Is your family able to get c lothes or diapers when needed? (Household - for ages 0-17 years) Not on file 11/21/2022 Personal Safety Answer Date Recorded Do you feel unsafe or have concerns for your saf ety? No 11/21/2022 Do you have concerns for you r family's safety? (Household - for ages 0-17 years) Not on file 11/21/2022 Utilities Answer Date Recorded Do you have trouble paying y our heating, water, or electric bill? No 11/21/2022 Is your family able to pay t he heat, water, or electric bill? (Household - for ages 0-17 years) Not on file 11/21/2022 Does your family have access to good internet? (Household - for ages 0-17 years) Not on file 11/21/2022 Employment Status Answer Date Recorded Are you unemployed or without regular income? No 11/21/2022 Does the household have a re gular source of income? (Household - for ages 0-17 years) Not on file 11/21/2022 Social Connections Answer Date Recorded How often do you feel lonely or isolated from th ose around you? Rarely 11/21/2022 Financial Resource Strain Answer Date R ecorded Do you have any trouble payi ng for your medications, or do you think you might in the future? No 11/21/2022 Does your family have troubl e paying for medicine? (Household - for ages 0-17 years) Not on file 11/21/2022 Transportation Needs Answer Date Record ed READ ONLY Do you have troubl e getting a ride to medical visits or work? Never True 11/21/2022 Does your family have a hard time getting a ride to doctors visits? (Household - for ages 0-17 years) Not on file 11/21/2022 Has lack of transportation k ept you from medical appointments, meetings, work, or from getting things needed for daily living? Check all that apply. (Adult - for ages 18 years and over) Not on file 11/21/2022 Do you (or your family) have trouble finding or paying for a ride (transportation)? (Household - for ages 0-17 years) Not on file 11/21/2022 Housing Stability Answer Date Recorded Do you currently live in a s helter or have no steady place to sleep at night? No 11/21/2022 READ ONLY Do you think you a re at risk of becoming homeless? No 11/21/2022 Does your family worry about paying for your home or becoming homeless? (Household - for ages 0-17 years) Not on file 0 11/21/2022 Are you homeless or worried that you might be in the future? (Adult - for ages 18 years and over) Not on file Are you (or your family) josé miguel eless or worried that you might be in the future? (Household - for ages 0-17 years) Not on file Food Insecurity Answer Date Recorded Do you need food for this week? No 11/21/2022 Are you able to get enough f ood for your family? (Household - for ages 0-17 years) Not on file 11/21/2022 Does your family need food t his week? (Household - for ages 0-17 years) Not on file 11/21/2022 Do you always have enough fo od for your family? (Household - for ages 0-17 years) Not on file 11/21/2022 Estimated Date of Delivery Comme nts Yes [...] encounter Miscellaneous Notes * Telephone Encounter - Chula Almonte RN - 11/07/2023 8:20 AM EDT Patient called in. She is 15w6d . Patient calling with concerns of diarrhea, and vomiting. Started last evening. No vomiting today sofar. Main concern is diarrhea. Denies dizziness or weakness, fever or severe pain. Patient denies vagina bleeding or any other related symptoms. Patient advised to push fluids, eat bland diet, try to progress food/fluids as tolerated. Given ER precautions for severe vomiting/dehydration. Patient agreeable to plan/verbalized understanding. documented in this encounter Plan of Treatment Upcoming Encounters Date Type Department Care Team (Late st Contact Info) Description 12/13/2023 1:15 PM EDT Imaging Radiology [facility] 2nd Floor, [place] [address] [place] [address] 12/13/2023 3:00 PM EDT Office Visit Gynecology/Obstetrics [facility] [address] [place] [address] Corinna Lucio CRNP [address] [place] [address] 01/24/2024 3:00 PM EDT Office Visit Gynecology/Obstetrics [facility] [address] [place] [address] Cindy Gonsales PA-C [address] [place] [address] Health Maintenance Due Date Last Done Comments Hepatitis B Vaccine (1 of 3 - 19+ 3-dose series) 2009 HPV/Co-Test 01/06/2020 Depression Screening 04/23/2021 04/23/2020 COVID-19 Vaccine (2022- season) 2022 09/29/2020, 09/08/2020 Influenza Vaccine (FLU shot) (#1) 2023 12/15/2022, 12/21/2021, 01/01/2021, Additional history exists TSH 09/06/2024 09/07/2023 Cervical Cancer Screening 11/23/2024 Pap Smear 11/23/2024 11/23/2021, 05/04, 03/20/2018 DTaP,Tdap,and Td Vaccines (2 - Td or Tdap) 08/21/2030 08/21/2020 MENINGOCOCCAL (MENACTRA/MENVEO) Completed 11/02/2006 HPV (Gardasil) Vaccine Completed 8, 2007, 11/02/2006 Pneumococcal Vaccine: Pediatrics (0 to 5 Years) and At-Risk Patients (6 to 64 Years) Aged Out No longer eligible based on patient's age to complete this topic documented as of this encounter Medical Devices Not on filedocumented as of this encounter Care Teams Technical Stenographer Relationship Specialty Start Date End Date [place] [address] PCP - General Family Medicine 04/23/20 documented as of this encounter
--- OUTSIDE RECORDS SUMMARY | 2024-04-18 02:43 | External Medical Summary ---
Author Name Unknown Address Unknown Organization K01:[facility]ORY [facility] [place] - [address] [place] [address] Laboratory Report Ordering Provider Test Date Status EMMANUEL HANLEY 02/05/2024 09:27:24 Final Observation Date Value Abnormality Reference (Units ) Status Creatinine 02/05/2024 09:27:24 0.6 0.5-1.0 (mg/dL) Final Glomerular filtration rate/1.73 sq M.predicted [Volume Rate/Area] in Serum, Plasma or Blood by Creatinine-based formula (CKD-EPI) 02/05/2024 09:27:24 >90 >=60 (mL/min) Final eGFR is calculated based on the CKD-EPI 2020 equation. Performing Location LAB[facility]ORY [facility] [place] - [address] [place] [address]
--- OUTSIDE RECORDS SUMMARY | 2024-04-18 02:43 | External Medical Summary | Summary of Care ---
Author Name Unknown Organization [facility] Address [address] [facility] [place] [address] Phone [phone] Care Team Providers Care Nicker And Breaker Name Role Phone Leida Mcclain MD Primary Care Provider [phone] Reason for Visit * Reason Comments Return Visit Encounter Details Date Type Department Care Team (Late st Contact Info) Description 01/08/2024 4:30 PM EDT Office Visit Gynecology/Obstetric s Reina Lynne [address] [place] [address] Cindy Gonsales PA-C [address] [place] [address] Encounter for supervision of other normal in second trimester*; Hypothyroid in , antepartum; Anxiety during ; Obesity in , antepartum Allergies Active Allergy Reactions Criticality Noted Date Comments Latex 08/22/2018 documented as of this encounter (statuses as of 01/08/2024) Medications Medication Sig Dispensed Refills Start Date [...] as of this encounter (statuses as of 01/08/2024) Active Problems Problem Noted Date Diagnosed Date Anxiety during 10/31/2023 Obesity in , antepartum 10/31/2023 Overview: Class 1 The patient's pre-gravid BMI is 32.28. Normal early GTT Hypothyroid in , antepartum 09/07/2023 Overview: On Synthroid 50 mg TSH Results: Lab Results Component Value Date/Time TSH - [facility] 3.53 09/07/2023 04:57 PM 10/12/23: 1.007 Acquired hypothyroidism 05/25/2021 Supervision of normal 03/26/2020 Other forms of migraine, wit hout mention of intractable migraine without mention of status migrainosus 02/01/2006 Estimated Date of Delivery Comme nts Yes 04/24/2024 Based on Ultraso und documented as of this encounter (statuses as of 01/08/2024) Resolved Problems Problem Noted Date Diagnosed Date Resolved Date Carrier of group B Streptococcus 10/09/2020 11/23/2021 documented as of this encounter (statuses as of 01/08/2024) Immunizations Name Administration Dates Next Due Seasonal [...] money to get more. Never true 12/12/2023 Geneva Depression Scale Answer Date Recorded Geneva Depression Scale Total 7 09/07/2023 The thought [...] Sign Reading Time Taken Comments Blood Pressure 108/62 01/08/2024 4:19 PM EDT Pulse - - Temperature - - Respiratory Rate - - Oxygen Saturation - - Inhaled Oxygen Concentration - - Weight 93.9 kg (207 lb) 01/08/2024 4:19 PM EDT Height 165.1 cm (5' 5") 01/08/2024 4:19 PM EDT Body Mass Index 34.45 01/08/2024 4:19 PM EDT documented in this encounter Progress Notes * Cindy Gonsales PA-C - 01/08/2024 4:24 PM EDT 24w5d Last TSH 12/08/2023 WNL. Riding son's scooter on Monday fell on left side. Did not hit belly. Pt states landed on arms has small abrasions and left side of ribs sore. No bruising. Didn't call in to office. Baby moving appropriately and normal since. Denies VB, LOF, or contractions. Blood type is A positive. Area far from abdomen. Discussed follow up with PCP if persist d/t concern for rib injury including fracture. Third tri labs with next visit RTC in 4 weeks Cindy Gonsales PA-C documented in this encounter Nursing Notes * Chula Almonte RN - 01/08/2024 4:26 PM EDT Patient here for WALLY 24w5d + FM Denies bleeding/leaking/contractions 28 wk labs pended and instructions given Chula Almonte RN documented in this encounter Plan of Treatment Scheduled Orders Name Type Priority Associated Diagnoses Orde r Schedule CBC WITH WBC DIFFERENTIAL AND ANEMIA REFLEX WORKUP Lab Routine Encounter for supervision of other normal in second trimester Expected: 01/08/2024, Expires: 01/07/2025 SYPHILIS ANTIBODY SCREEN WITH REFLEX TO RPR Lab Routine Encounter for supervision of other normal in second trimester Expected: 01/08/2024, Expires: 01/07/2025 50-G GESTATIONAL GLUCOSE, 1 HOUR Lab Routine Encounter for supervision of other normal in second trimester Expected: 01/08/2024, Expires: 01/07/2025 Health Maintenance Due Date Last Done Comments [...] or the puerperium, antepartum condition or complication documented in this encounter Care Teams Nicker And Breaker Relationship Specialty Start Date End Date [place] [place] [id number] PCP - General Family Medicine 04/23/20 documented as of this encounter
--- OUTSIDE RECORDS SUMMARY | 2024-04-18 02:43 | External Medical Summary ---
Author Name Unknown Address Unknown Organization [id number]:[place] [place] [address] [place] [address] Laboratory Report Ordering Provider Test Date Status DIANNE RASMUSSEN 02/05/2024 09:27:24 Final Observation Date Value Abnormality Reference (Units ) Status MYCODE SPECIMEN-SST 02/05/2024 09:27:24 Freezing of extracted DNA, whole blood and/or serum. Final Performing Location [facility] [place] [address] [place] [address]
--- OUTSIDE RECORDS SUMMARY | 2024-04-18 02:43 | External Medical Summary ---
Author Name Unknown Address Unknown Organization K01:LABORATORY [facility] - [address] [place] [address] Laboratory Report Ordering Provider Test Date Status DIANNE RASMUSSEN 02/05/2024 09:27:24 Final Observation Date Value Abnormality Reference (Units ) Status [email or web address] SPECIMEN-LAV 02/05/2024 09:27:24 Freezing of extracted DNA, whole blood and/or serum. Final Performing Location LABORATORY [facility] - [address] [place] [address]
--- OUTSIDE RECORDS SUMMARY | 2024-04-18 02:43 | External Medical Summary ---
Author Name Unknown Address Unknown Organization [id number]:LAB[facility]ATORY [facility] [place] - [address] [place] [address] Laboratory Report Ordering Provider Test Date Status DIANNE RASMUSSEN 02/05/2024 09:27:24 Final Observation Date Value Abnormality Reference (Units ) Status MYCODE SPECIMEN-SST 02/05/2024 09:27:24 Freezing of extracted DNA, whole blood and/or serum. Final Performing Location LAB[facility]ATORY [facility] [place] - [address] [place] [address]
--- OUTSIDE RECORDS SUMMARY | 2024-04-18 02:43 | External Medical Summary ---
Author Name Unknown Address Unknown Organization [id number]:LAB[facility]ATORY [facility] [place] - [facility] [address] [place] [address] Laboratory Report Ordering Provider Test Date Status EMMANUEL HANLEY 02/05/2024 09:27:24 Final Observation Date Value Abnormality Reference (Units ) Status WBC, Total 02/05/2024 09:27:24 12.17 Above high normal 4 .00-10.80 (K/uL) Final RBC 02/05/2024 09:27:24 4.06 3.85-5.15 (M/uL) Final Hemoglobin 02/05/2024 09:27:24 11.6 Below low normal 12 .0-15.3 (g/dL) Final Anemia reflex testing trigge rs on a HGB < 12.0 for Females and HGB < 13.0 for Males in accordance with the WHO Anemia Guidelines
Anemia reflex testing triggers on a HGB < 12.0 for Females and HGB < 13.0 for Males in accordance with the WHO Anemia Guidelines HCT 02/05/2024 09:27:24 35.9 Below low normal 36. 0-45.2 (%) Final MCV 02/05/2024 09:27:24 88.4 81.5-97.5 (fL) Final MCH 02/05/2024 09:27:24 28.6 27.0-34.0 (pg) Final MCHC 02/05/2024 09:27:24 32.3 32.0-36.0 (g/dL) Final RDW 02/05/2024 09:27:24 13.9 11.5-15.5 (%) Final Platelets 02/05/2024 09:27:24 251 140-400 (K /uL) Final MPV 02/05/2024 09:27:24 12.7 6.6-11.1 ( fL) Final Nucleated erythrocytes/100 leukocytes [Ratio] in Blood by Automated count 02/05/2024 09:27:24 0 <=0 (/100 WBCs) Final Performing Location LABORATORY [place] [address] [address] [facility] [address]
--- OUTSIDE RECORDS SUMMARY | 2024-04-18 02:43 | External Medical Summary ---
Author Name Unknown Address Unknown Organization [id number]:[facility] [place] [address] [place] [address] Laboratory Report Ordering Provider Test Date Status EMMANUEL HANLEY 02/05/2024 09:27:24 Final Observation Date Value Abnormality Reference (Units ) Status Treponema pallidum Ab [Presence] in Serum by Immunoassay 02/05/2024 09:27:24 Nonreactive Nonreactive Final No serologic evidence of syp hilis. No additional testing clinicially indicated at this time. Consider repeat testing in 2-4 weeks if acute or primary syphilis is suspected. Performing Location [facility] [place] [address] [place] [address]
--- OUTSIDE RECORDS SUMMARY | 2024-04-18 02:43 | External Medical Summary | Summary of Care ---
Author Name Unknown Organization [facility] Address [address] [facility] [place] [place] [address] Phone [phone] Care Team Providers Care Jitterbug Operator Name Role Phone Leida Mcclain MD Primary Care Provider [phone] Reason for Visit * Reason Comments Return Visit Encounter Details Date Type Department Care Team (Late st Contact Info) Description 02/05/2024 8:30 AM EST Office Visit Gynecology/Obstetric s [facility] [address] [place] [address] BackTami pope CRNP [address] [place] [address] Encounter for supervision of other normal in third trimester*; Hypothyroid in , antepartum; Anxiety during ; Obesity in , antepartum; Breast feeding status of mother; Need for jieaiaally-kffqopo-y ertussis (Tdap) vaccine Allergies Active Allergy Reactions Criticality Noted Date [...] double electric pump 1 Each 02/05/2024 Active documented as of this encounter (statuses [...] money to get more. Never true 12/12/2023 Poynette Depression Scale Answer Date Recorded P[place]nette Depression Scale Total 7 09/07/2023 The thought [...] Sign Reading Time Taken Comments Blood Pressure 104/62 02/05/2024 8:20 AM EST Pulse - - Temperature - - Respiratory Rate - - Oxygen Saturation - - Inhaled Oxygen Concentration - - Weight 95.7 kg (211 lb) 02/05/2024 8:20 AM EST Height - - Body Mass Index 35.11 01/08/2024 4:19 PM EDT documented in this encounter Progress Notes * Tami Maurice CRNP - 02/05/2024 8:29 AM EST 28w5d + movement. No cramping, bleeding. Labs, Tdap today. Rx for breast pump completed. Discussed [facility] and when to call w/concerns. 2 week return. BISHOP Garvey * Erika Ruby LPN - 02/05/2024 8:21 AM EST 28w5d Denies vaginal bleeding/rom + movement Gtt today Tdap today documented in this encounter Nursing Notes * Erika Ruby LPN - 02/05/2024 8:38 AM EST Patient here for tdap injection. Patient doing well no complaints. Injection [...] Reina Lynne [address] [place] [address] Tami Maurice CRNP [address] [place] [address] Health Maintenance Due Date Last Done Comments [...] or the puerperium, antepartum condition or complication Breast feeding status of mother care and examination of lactating mother Need for ozscyjowzh-qrgzisw-mtbpxeshi (Tdap) vaccine Need for prophylactic vaccination with combined gyujzgkexs-dnvulbi-zadxneejy (DTP) vaccine documented in this encounter Care Teams Jitterbug Operator Relationship Specialty Start Date End Date [place] [address] [address] PCP - General Family Medicine 04/23/20 documented as of this encounter
--- OUTSIDE RECORDS SUMMARY | 2024-04-18 02:43 | External Medical Summary ---
Author Name Unknown Address Unknown Organization K01:LABORATORY [facility] [place] - [address] [place] [address] Laboratory Report Ordering Provider Test Date Status EMMANUEL HANLEY 02/05/2024 09:27:24 Final Observation Date Value Abnormality Reference (Units ) Status SYNC LEUKOCYTES IN BLOOD BY AUTOMATED COUNT 02/05/2024 09:27:24 12.17 Above high normal 4.00-10.80 (K/uL) Final Segs 02/05/2024 09:27:24 76.7 Above high normal 40.0-75.0 (%) Final Lymphs % 02/05/2024 09:27:24 11.9 Below low normal 18.0-42.0 (%) Final Monos 02/05/2024 09:27:24 5.5 1.0-11.0 (%) Final Eosinophils 02/05/2024 09:27:24 2.7 0.0-6.0 (%) Final Basos 02/05/2024 09:27:24 0.7 0.0-2.0 (%) Final Immature Granulocyte, Percent 02/05/2024 09:27:24 2.5 Above high normal 0.0-2.0 (%) Final Absolute Segs 02/05/2024 09:27:24 9.33 Above high normal 1.80-7.70 (K/uL) Final Lymphs, absolute 02/05/2024 09:27:24 1.45 1.00-4.80 (K/ul) Final Monos, Abs 02/05/2024 09:27:24 0.67 0.00-1.10 (K/uL) Final Eos, Abs 02/05/2024 09:27:24 0.33 0.00-0.70 (K/uL) Final Basos, Abs 02/05/2024 09:27:24 0.08 0.00-0.20 (K/uL) Final Immature Granulocytes, Number 02/05/2024 09:27:24 0.31 Above high normal 0.00-0.20 (K/uL) Final Performing Location LABORATORY [facility] [place] - [address] [place] [address]
--- OUTSIDE RECORDS SUMMARY | 2024-04-18 02:43 | External Medical Summary ---
Author Name Unknown Address Unknown Organization K0G:LABORATORY [facility] [facility] - [address] [place] [address] Laboratory Report Ordering Provider Test Date Status EMMANUEL HANLEY 02/05/2024 09:27:24 Final Observation Date Value Abnormality Reference (Units ) Status Glucose [Moles/volume] in Serum or Plasma --1 hour post 50 g glucose PO 02/05/2024 09:27:24 93 70-129 (mg/dL) Final Performing Location LABORATORY [facility] [facility] - [address] [place] [address]
--- OUTSIDE RECORDS SUMMARY | 2024-04-18 02:43 | External Medical Summary ---
Author Name Unknown Address Unknown Organization K01[place] [facility] [place] [address] [place] [address] Laboratory Report Ordering Provider Test Date Status DAYANEMMANUEL 02/05/2024 09:27:24 Final Observation Date Value Abnormality Reference (Units ) Status Retic, % (auto) 02/05/2024 09:27:24 2.60 Above high normal 0.80-1.90 (%) Final Reticulocytes, Absolute 02/05/2024 09:27:24 105.6 Above high normal 31.3-100.1 (K/uL) Final Reticulocyte fraction, immature 02/05/2024 09:27:24 26.7 Above high normal 2.5-20.6 (%) Final Reticulocyte HGB 02/05/2024 09:27:24 29.6 Below low normal 29.7-37.4 (pg) Final Performing Location [place] [facility] [place] [address] [place] [address]
--- OUTSIDE RECORDS SUMMARY | 2024-04-18 02:43 | External Medical Summary | Summary of Care ---
Author Name Unknown Organization [facility] Address [address] [place] [address] Phone [phone] Care Team Providers Care Mold Capper Name Role Phone Leida Mcclain MD Primary Care Provider [phone] Reason for Visit * Reason Comments Return Visit Encounter Details Date Type Department Care Team (Late st Contact Info) Description 10/31/2023 11:30 AM EDT Office Visit Gynecology/Obstetric s Reina Lynne [address] [place] [address] BackTami pope CRNP [address] [place] [address] Encounter for supervision of other normal in second trimester*; Hypothyroid in , antepartum; Anxiety during ; Obesity in , antepartum Allergies Active Allergy Reactions Criticality Noted Date Comments Latex 08/22/2018 documented as of this encounter (statuses as of 10/31/2023) Medications Medication Sig Dispensed Refills Start Date [...] as of this encounter (statuses as of 10/31/2023) Active Problems Problem Noted Date Diagnosed Date [...] as of this encounter (statuses as of 10/31/2023) Resolved Problems Problem Noted Date Diagnosed Date Resolved Date Carrier of group B Streptococcus 10/09/2020 11/23/2021 documented as of this encounter (statuses as of 10/31/2023) Immunizations Name Administration Dates Next Due Seasonal [...] money to get more. Never true 11/21/2022 Tower Depression Scale Answer Date Recorded Tower Depression Scale Total 7 09/07/2023 The thought [...] 18 years and over) Not on file 3 Are you (or your family) josé miguel [...] Reading Time Taken Comments Blood Pressure 102/58 10/31/2023 11:34 AM EDT Pulse - - Temperature - - Respiratory Rate - - Oxygen Saturation - - Inhaled Oxygen Concentration - - Weight 88.5 kg (195 lb) 10/31/2023 11:34 AM EDT Height 165.1 cm (5' 5") 10/31/2023 11:34 AM EDT Body Mass Index 32.45 10/31/2023 11:34 AM EDT documented in this encounter Patient Instructions * Patient Instructions* Tami Maurice CRNP - 10/31/2023 11:35 AM EDT To prevent migraines, take daily (jego-rmv-csqxwsc): - 400 mg magnesium - 200 mg Co-Q-10 - 400 mg riboflavin (vitamin B2) documented in this encounter Progress Notes * Tami Maurice CRNP - 10/31/2023 11:40 AM EDT 14w6d No further bleeding. Not feeling movement yet. No significant pelvic pain. HAs a few times a week, respond to Tylenol. Has a hx of these pre-. Feels she is adequately hydrated. Reviewed OTC supplements to help prevent them - call office if worsening. She wishes to return in 6 weeks to coincide with anatomy scan. Encouraged to call with any questions/concerns prior to then. BISHOP Garvey documented in this encounter Nursing Notes * Stephanie Leung LPN - 10/31/2023 11:33 AM EDT 14w6d LEE's 3 times a week tylenol helps documented in this encounter Plan of Treatment Upcoming Encounters Date Type Department Care Team (Late st Contact Info) Description 12/13/2023 1:15 PM EDT Imaging Radiology [facility] [address] [place] [address] 12/13/2023 3:00 PM EDT Office Visit Gynecology/Obstetrics [facility] [address] [place] [address] Corinna Lucio CRNP [address] [place] [address] 01/24/2024 3:00 PM EDT Office Visit Gynecology/Obstetrics [facility] [address] [place] [address] Cindy Gonsales PA-C [address] [place] [address] Scheduled Orders Name Type Priority Associated Diagnoses Orde r Schedule US PREG SINGLE/1ST GEST, 14 WEEKS OR LATER Medical Imaging Routine Encounter for supervision of other normal in second trimester Expected: 12/12/2023 (Approximate), Expires: 11/30/2024 Health Maintenance Due Date Last Done Comments [...] HPV (Gardasil) Vaccine Completed 8, 2007, 11/02/2006 HIV Screening Completed 09/07/2023, 060 09/2023, 03/26/2020 Hepatitis C Screening Completed 09/07/2023 , 09/07/2023, 09/07/2023 Pneumococcal Vaccine: Pediatrics (0 to 5 Years) [...] complication documented in this encounter Care Teams Mold Capper Relationship Specialty Start Date End Date Leida Mcclain MD [address] [place] [address] PCP - General Family Medicine 04/23/20 documented as of this encounter
--- OUTSIDE RECORDS SUMMARY | 2024-04-18 02:43 | External Medical Summary ---
Author Name Unknown Address Unknown Organization K01[place] [facility] [place] [address] [place] [address] Laboratory Report Ordering Provider Test Date Status EMMANUEL HANLEY 02/05/2024 09:27:24 Final Observation Date Value Abnormality Reference (Units ) Status Iron 02/05/2024 09:27:24 51 33-151 (ug/dL) Final Iron-binding capacity 02/05/2024 09:27:24 429 Above high normal 250-425 (ug/dL) Final Transferrin Sat % 02/05/2024 09:27:24 12 Below low normal 15-55 (%) Final Performing [place] [facility] [place] [address] [facility] [address]
--- NOTE | 2024-04-18 03:17 | Anesthesia Procedure Note ---
Date of Service April 18, 2024 Anesthesia Post Epidural Note Vital Signs Vital Signs: Temp Pulse Resp BP Pulse Ox O2 Del Method 37.0 C 68 16 109/70 98 Room Air 04/18/24 00:00 04/18/24 00:00 04/18/24 00:00 04/18/24 00:00 04/18/24 00:00 04/18/24 00:00 Notes Mental Status: alert / awake / arousable and participated in evaluation Nausea / Vomiting: adequately controlled Pain: adequately controlled Airway Patency, RR, SpO2: stable & adequate BP & HR: stable & adequate Hydration State: stable & adequate Neuraxial Anesthesia: was administered and sensory block is resolving Anesthetic Complications: no major complications apparent Epidural: Removed without complications and With tip intact
[2024-04-18] MEDS: LEVOTHYROXINE SODIUM 50 MCG TABLET PO SCH (06:16)
[2024-04-18 06:40] LABS: Hematocrit (blood only) 32.4 % (37.0-47.0); Hemoglobin 10.7 g/dl (12.0-16.0); Mean Corpuscular Hemoglobin 27.9 pg (25.0-34.0); Mean Corpuscular Volume 84.4 fL (80.0-100.0); Mean Platelet Volume 11.9 fL (9.4-12.4); Platelet Count 175 K/uL (130-400); RDW Coefficient of Variation 14.4 % (11.5-14.5); RDW Standard Deviation 43.8 fL (36.4-46.3); Red Blood Count 3.84 M/uL (4.20-5.40); White Blood Count 14.16 K/ul (4.8-10.8)
[2024-04-18] MEDS: DOCUSATE SODIUM 100 MG CAP PO SCH (07:16)
[2024-04-18] MEDS: PRENATAL VITAMIN 1 TAB PO SCH (07:16)
--- NOTE | 2024-04-18 10:02 | Obstetrical Progress Note ---
Date of Service April 18, 2024 Subjective Ambulation: ambulating normally Voiding: no voiding problems Passing Gas:: Yes Diet Tolerance:: regular diet Lochia:: Small Feeding Type:: bottle feeding doing well. wants to stay till tomorrow. Physical Exam Constitutional WD/WN, vitals as above Eyes PERRL, conjunctivae normal, anicteric sclerae Gastrointestinal (Abdomen) Inspection/Auscultation: abdomen normal to inspection abdomen soft and non-tender. fundus firm below U. Musculoskeletal Extremities: extremities normal to inspection Skin no rashes, warm and dry Neurologic patellar DTR's 2+ bilat, sensation intact Psychiatric A+Ox3, euthymic affect Results & Data Vital Signs (Past 12 Hours) Vital Signs Temp Pulse Pulse Resp BP BP Pulse Ox 04/18/24 07:22 36.9 C 64 16 109/71 04/18/24 03:30 36.8 C 65 16 105/68 98 04/18/24 00:00 37.0 C 68 16 109/70 98 04/17/24 23:25 75 123/71 04/17/24 23:20 37.1 C 18 04/17/24 22:53 70 117/69 04/17/24 22:50 36.9 C O2 Del Method 04/18/24 07:22 Room Air 04/18/24 03:30 Room Air 04/18/24 00:00 Room Air 04/17/24 23:25 04/17/24 23:20 04/17/24 22:53 04/17/24 22:50 Laboratory Results Laboratory Results - last 72 hr 04/17/24 04/18/24 19:30 05:58 WBC 12.26 H 14.16 H RBC 4.06 L 3.84 L Hgb 11.3 L 10.7 L Hct 33.9 L 32.4 L MCV 83.5 84.4 MCH 27.8 27.9 MCHC 33.3 33.0 RDW Std Deviation 43.7 43.8 RDW Coeff of Taryn 14.5 14.4 Plt Count 231 175 MPV 11.9 11.9 Immature Gran % (Auto) 2.6 Neut % (Auto) 76.8 Lymph % (Auto) 12.2 [place] % (Auto) 6.4 Eos % (Auto) 1.5 Baso % (Auto) 0.5 Neut # (Auto) 9.40 H Lymph # (Auto) 1.50 [place] # (Auto) 0.79 H Eos # (Auto) 0.19 Baso # (Auto) 0.06 Immature Gran # (Auto) 0.32 H Treponema pallidum Ab Negative
[2024-04-18 16:14] VITALS: BP 115/77; PULSE 71; RESP 18; TEMP 98.6
[2024-04-18] MEDS ORDERED: bisacodyL 5 MG TABEC PO SCH (20:00)
== END 2024-04-18 20:00 | disposition home or self-care (01) | DRG 807 ==
LOC: OPB 17:55 → 4S1 17:57 → 4E2 23:54